=== PATIENT | female | born 1995 | race Caucasian/White ===

== ENCOUNTER 2017-04-02 07:40 | Emergency (ER) | payer BC ==
[~2017-04-02 07:40] MED LIST: BCPILLS PO; CEPH500C PO
[2017-04-02 07:43] VITALS: TEMP 36.8; Ht 157.5 cm
[2017-04-02] MEDS ORDERED: IBUPROFEN 600 MG TAB PO STA (08:01)
--- NOTE | 2017-04-02 08:37 | DIAGNOSTIC IMAGING REPORT ---
LEFT FOOT 3 VIEWS CLINICAL HISTORY: Fall with left foot pain. FINDINGS: 3 views of left foot are obtained. No prior studies are available for comparison at the time of dictation. The skeletal structures are well mineralized. No fracture is seen. The joint spaces of the foot are well-maintained. The overlying soft tissues are within normal limits. IMPRESSION: No acute bony abnormality is seen in the left foot. Electronically signed by: Stone Bishop M.D. 04/02/2017 8:35 AM Dictated Date/Time: 04/02/2017 8:33 AM
[2017-04-02] MEDS ORDERED: [UNRECOGNIZED DRUG - CODE] PO (08:57)
--- NOTE | 2017-04-02 09:01 | EMERGENCY ROOM VISIT NOTE ---
ED Visit Note First contact with patient: 07:48 CHIEF COMPLAINT: Left Foot pain HISTORY OF PRESENT ILLNESS: This 21-year-old female patient presents to the emergency department, ambulatory, [facility], complaining of swelling and pain in the left foot at rest and worse with weight bearing. The patient sates she was walking down the stairs this morning, and stumbled. The patient states this caused her ankle to roll underneath her. The patient attempted to use ice and elevation for the discomfort but nothing for pain. The patient states the pain is primarily localized on the dorsal aspect of the foot just proximal to the first 2 digits. She reports some mild redness and swelling in the painful areas. The patient denies any limitations in her range of motion, however states strength is slightly weakened due to pain. The patient rates the pain as throbbing and 6/10. The patient has had no relief of the pain. The patient is able to walk, however this significantly worsens her pain. No numbness or weakness. No ankle pain. There are no lacerations of the foot, but there are several very superficial abrasions. The patient is able to move all of their toes and their ankle without pain. No previous fracture to this foot. The patient's tetanus vaccination is up-to-date. REVIEW OF SYSTEMS: GENERAL: A 6 system review of systems was completed with positives and pertinent negatives in the HPI. ALLERGIES: None MEDICATIONS: Celexa PMH: None SOCIAL HISTORY: Patient lives locally with family. She denies drug, alcohol, tobacco use. PHYSICAL EXAM: Vital Signs: Reviewed Nurse's notes, vital signs stable. GENERAL : This is a 21-year-old female, in no acute distress, but appears in pain, well- developed, well-nourished. MUSCULOSKELATAL: There is no visual deformity of the left foot. There is mild erythema without ecchymosis. There is no warmth. There is tenderness and swelling over the dorsal, medial aspect of the left foot. There is no tenderness over the lateral or medial malleolus. No tenderness of the tib/fib. The range of motion of the foot, ankle, toes is not limited. There is no tenderness over the plantar fascia. The skin is intact and there are no lacerations or puncture wounds. Dorsalis pedis pulse 2+. Capillary refill less than 2 seconds. RADIOLOGY: X-Ray Left Foot: FINDINGS: 3 views of left foot are obtained. No prior studies are available for comparison at the time of dictation. The skeletal structures are well mineralized. No fracture is seen. The joint spaces of the foot are well-maintained. The overlying soft tissues are within normal limits. IMPRESSION: No acute bony abnormality is seen in the left foot. EMERGENCY DEPARTMENT COURSE: I examined the patient. The patient was given a dose of 600 mg ibuprofen. The patient advised x-ray technicians that there is a possibility she may be . A urine test was ordered and was positive. An X-ray of the left foot was reviewed by myself and the radiologist and reveals no acute fracture or abnormality. I offered the patient a postop shoe, but she declines. Discussed with the patient the positive test , and did prescribe her vitamins. I encouraged the patient to follow up with obstetrics outpatient. The patient was instructed on the use of crutches. The patient was discharged home in good condition. DIAGNOSIS: Left foot pain, TREATMENT: ORTHOPEDIC INSTRUCTIONS: Acetaminophen(Tylenol) may be used for fever or pain. Use 1000mg every six hours as needed. Avoid using more than 3000mg in a 24 hour period. *Do not take NSAIDs such as ibuprofen if you can avoid it, as we did perform a test in the ED which was positive. Ice compresses for 20 minutes at a time four times daily for 2-3 days. Use the crutches as instructed. Avoid weight-bearing as much as possible until it becomes tolerable. Then be sure to wear good, supportive footwear. Rest and elevate your injury. Return to the ER immediately for any numbness, tingling, severe pain, extreme swelling in the extremity or as needed. Call [facility], [phone], if no improvement in 1-2 days to arrange follow up for your injury. Follow-up with your primary care physician in 2 to 3 days for a recheck of your current condition. Follow-up with SHIFT SUPERVISOR regarding your for pre-jeremy care. Current/Historical Medications Scheduled Vit W/ Ferrous Fumara ( One Daily), 1 TAB PO DAILY Allergies Coded Allergies: No Known Allergies (Unverified , 04/02/17) Vital Signs Date Time Temp Pulse Resp B/P (MAP) Pulse Ox O2 Delivery O2 Flow Rate FiO2 04/02/17 09:03 78 20 113/63 97 Room Air 04/02/17 07:43 36.8 91 16 123/78 99 Room Air Medications Administered Medications (Trade) Dose Ordered Sig/Michelle Route Start Time Stop Time Status Last Admin Dose Admin Ibuprofen (Motrin Tab) 600 mg NOW STAT PO 04/02/17 08:01 04/02/17 08:02 DC 04/02/17 08:06 600 MG Departure Information Impression Primary Impression: Foot pain Additional Impression: Dispostion Home / Self-Care Condition GOOD Prescriptions Vit W/ Ferrous Fumara ( ONE DAILY) 1 Tab Tab 1 TAB PO DAILY for 30 Days, #30 TAB 1 Refill Prov: Briana Giang, LUIS 04/02/17 Referrals Rafael Lopez M.D. (MEDICAL) (PCP) Rylan Man D.O. [facility]PER[facility] Patient Instructions ED Contusion Foot, ED Preg Established Normal Sxs, My [facility] Additional Instructions ORTHOPEDIC INSTRUCTIONS: Acetaminophen(Tylenol) may be used for fever or pain. Use 1000mg every six hours as needed. Avoid using more than 3000mg in a 24 hour period. *Do not take NSAIDs such as ibuprofen if you can avoid it, as we did perform a test in the ED which was positive. Ice compresses for 20 minutes at a time four times daily for 2-3 days. Use the crutches as instructed. Avoid weight-bearing as much as possible until it becomes tolerable. Then be sure to wear good, supportive footwear. Rest and elevate your injury. Return to the ER immediately for any numbness, tingling, severe pain, extreme swelling in the extremity or as needed. Call [facility], [phone], if no improvement in 1-2 days to arrange follow up for your injury. Follow-up with your primary care physician in 2 to 3 days for a recheck of your current condition. Follow-up with SHIFT SUPERVISOR regarding your for pre- care. Problem Qualifiers Primary Impression: Foot pain Laterality: left Qualified Codes: M79.672 - Pain in left foot Additional Impression: Weeks of gestation: unspecified Qualified Codes: Z34.90 - Encounter for supervision of normal , unspecified, unspecified trimester
[2017-04-02 09:03] VITALS: BP 113/63; PULSE 78; O2SAT 97
== END 2017-04-02 09:15 | disposition home or self-care (01) ==
LOC: C.EDB 07:43
DX: O99.89 Other specified diseases and conditions complicating pregnancy, childbirth and the puerperium (principal); Z3A.01 Less than 8 weeks gestation of pregnancy; S90.812A Abrasion, left foot, initial encounter; X50.0XXA Overexertion from strenuous movement or load, initial encounter; Z79.899 Other long term (current) drug therapy

== ENCOUNTER → 2017-05-05 | Outpatient (CLI) | payer BC ==
[~2017-05-05] MED LIST changes: -BCPILLS PO; -CEPH500C PO; +[UNRECOGNIZED DRUG - CODE] PO
[2017-05-05 17:17] LABS: BASO % 0.2 %; BASO ABS # 0.02 K/uL (0-0.2); COMPLETE YES; EOS % 0.9 %; HEMATOCRIT 36.8 % (37-47); IG% 0.5 %; LYMPH % 29.6 %; LYMPH ABS # 3.47 K/uL (1.2-3.4); MEAN CELL VOLUME 86.4 fL (80-100); MEAN CORPUSCULAR HEMOGLOBIN 29.3 pg (25-34); MEAN PLATELET VOLUME 8.9 fL (7.4-10.4); MONO % 7.3 %; NEUT % 61.5 %; PLATELET COUNT 243 K/uL (130-400); RED BLOOD COUNT 4.26 M/uL (4.2-5.4); WHITE BLOOD COUNT 11.71 K/uL (4.8-10.8)
[2017-05-05 18:47] LABS: URINE APPEARANCE CLOUDY (CLEAR); URINE BILIRUBIN NEG (NEG); URINE COLOR YELLOW; URINE EPITHELIAL CELL AUTO >30 /lpf (0-5); URINE NITRITE NEG (NEG); URINE SPECIFIC GRAVITY 1.029 (1.000-1.030); UROBILINOGEN NEG (NEG)
[2017-05-05 18:50] LABS: MANUAL MICROSCOPIC REQUIRED? NO; REVIEW REQ? NO
[2017-05-08 00:32] LABS: CHLAMYDIA TRACH RNA*** NOT DETECTED (NOT DETECTED); GC (NEIS GONORRHOEAE)RNA** NOT DETECTED (NOT DETECTED)
== END | disposition home or self-care (01) ==
LOC: C.LAB1850 16:49
PROVIDERS: ATTEND Obstetrics & Gynecology
DX: Z34.01 Encounter for supervision of normal first pregnancy, first trimester (principal); Z3A.00 Weeks of gestation of pregnancy not specified

== ENCOUNTER → 2017-05-05 | Outpatient (CLI) | payer BC | END | disposition home or self-care (01) | LOC: C.PAPS 09:00 | PROVIDERS: ATTEND Obstetrics & Gynecology | DX: Z34.01 Encounter for supervision of normal first pregnancy, first trimester (principal) ==

== ENCOUNTER → 2017-06-09 | Outpatient (CLI) | payer BC ==
[2017-06-09 17:39] LABS: GTGD 50 Grams
== END | disposition home or self-care (01) ==
LOC: C.LAB1850 13:56
PROVIDERS: ATTEND Obstetrics & Gynecology
DX: Z34.02 Encounter for supervision of normal first pregnancy, second trimester (principal)

== ENCOUNTER → 2017-06-25 | Outpatient (CLI) | payer BC | END | disposition home or self-care (01) | LOC: C.LAB1850 08:24 | PROVIDERS: ATTEND Obstetrics & Gynecology | DX: O28.1 Abnormal biochemical finding on antenatal screening of mother (principal) ==

== ENCOUNTER → 2017-08-25 | Outpatient (CLI) | payer BC ==
[2017-08-25 10:11] LABS: HEMATOCRIT 32.2 % (37-47); HEMOGLOBIN 10.9 g/dL (12.0-16.0)
== END | disposition home or self-care (01) ==
LOC: C.LAB1850 08:57
PROVIDERS: ATTEND Obstetrics & Gynecology
DX: Z34.03 Encounter for supervision of normal first pregnancy, third trimester (principal)

== ENCOUNTER → 2017-10-20 | Outpatient (CLI) | payer BC | END | disposition home or self-care (01) | LOC: C.LABSPEC 15:33 | PROVIDERS: ATTEND Obstetrics & Gynecology | DX: Z34.03 Encounter for supervision of normal first pregnancy, third trimester (principal) ==

== ENCOUNTER 2017-11-15 18:49 | Outpatient (CLI) | payer BC ==
[~2017-11-15] VITALS: Ht 157.5 cm; Wt 92.7 kg
[2017-11-15 19:32] VITALS: Ht 157.5 cm; Wt 92.7 kg
--- NOTE | 2017-11-26 07:18 | EDITING REQUIRED CODING QUERY ---
HUBBARD BULB INSERTION A hubbard bulb insertion was noted on the nurse's notes for the 11/15/17. Please indicate below if this was performed: ( ) Hubbard bulb was not inserted during this admission. ( X ) Hubbard bulb was inserted: BRIEF DESCRIPTION: It was inserted ( ) Other, please clarify: Thank you for your assistance, Alexandra Lopez - Blending Line Attendant
== END 2017-11-15 20:25 | disposition home or self-care (01) ==
LOC: C.OPB 18:49 → C.LD 18:49 → C.OPB 20:25
PROVIDERS: ATTEND Obstetrics & Gynecology
DX: O34.43 Maternal care for other abnormalities of cervix, third trimester (principal); Z3A.00 Weeks of gestation of pregnancy not specified

== ENCOUNTER 2017-11-16 07:27 | Inpatient (IN) | payer BC ==
[~2017-11-16] VITALS: Ht 157.5 cm; Wt 91.0 kg
[2017-11-16] MEDS ORDERED: LACTATED RINGER'S 1000ML 1,000 ML IV PRN (08:23)
[2017-11-16] MEDS ORDERED: LACTATED RINGER'S 1000ML 1,000 ML IV SCH (08:23)
[2017-11-16] MEDS ORDERED: LACTATED RINGER'S 1000ML 500 ML IV PRN ×2 (08:23→13:57)
[2017-11-16] MEDS ORDERED: OXYTOCIN 30 UNITS/500ML NSS IV PRN ×2 (08:30→18:30)
[2017-11-16 08:32] VITALS: Ht 157.5 cm; Wt 91.0 kg
[2017-11-16 08:49] LABS: HEMATOCRIT 36.4 % (37-47); HEMOGLOBIN 12.5 g/dL (12.0-16.0); MEAN CELL VOLUME 87.1 fL (80-100); MEAN CORPUSCULAR HEMOGLOBIN 29.9 pg (25-34); MEAN CORPUSCULAR HGB CONC 34.3 g/dl (32-36); MEAN PLATELET VOLUME 10.2 fL (7.4-10.4); PLATELET COUNT 201 K/uL (130-400); RED CELL DISTRIBUTION WIDTH CV 15.1 % (11.5-14.5); RED CELL DISTRIBUTION WIDTH SD 48.1 fL (36.4-46.3); WHITE BLOOD COUNT 11.89 K/uL (4.8-10.8)
[2017-11-16] MEDS ORDERED: FENTANYL CITRATE INJ 50 MCG/1 ML 2 ML VIAL ONE (13:15)
[2017-11-16] MEDS ORDERED: EpHEDrine SULFATE INJ 50 MG/ML AMP ONE (13:15)
[2017-11-16] MEDS ORDERED: BUPIVACAINE 0.25% 30 ML VIAL ONE (13:15)
[2017-11-16] MEDS ORDERED: FENTANYL 2MCG/ML ROPIV 1.25MG/ML 100ML BAG EPI ONE (13:16)
[2017-11-16] MEDS ORDERED: NALOXONE HCL INJ 1 MG in SODIUM CHLORIDE 0.9% 1000ML 1,000 ML IV PRN (13:57)
[2017-11-16] MEDS ORDERED: EpHEDrine SULFATE INJ 50 MG/ML AMP IV PRN (14:00)
[2017-11-16] MEDS ORDERED: NALOXONE HCL INJ 0.4 MG/1 ML VIAL/CARP IV PRN (14:00)
[2017-11-16] MEDS ORDERED: NALBUPHINE HCL INJ 10 MG/ML AMP IV PRN (14:00)
[2017-11-16] MEDS ORDERED: ONDANSETRON INJ 2 MG/ML 2 ML VIAL IV PRN (14:00)
[2017-11-16] MEDS ORDERED: DiphenhydrAMINE HCL 50 MG/ML VIAL IV PRN (14:00)
[2017-11-16] MEDS ORDERED: FENTANYL 2MCG/ML ROPIV 1.25MG/ML 100ML BAG EPI PRN (14:00)
[2017-11-16] MEDS ORDERED: ACETAMINOPHEN 325 MG TAB PO PRN (18:30)
[2017-11-16] MEDS ORDERED: LANOLIN OINT EXT PRN (18:30)
[2017-11-16] MEDS ORDERED: BENZOCAINE 20% AER SPR 82.5 GM CAN EXT PRN (18:30)
[2017-11-16] MEDS ORDERED: OXYCODONE/ACETAMINOPHEN 5-325 TAB PO PRN (18:30)
[2017-11-16] MEDS ORDERED: SUPERCREAM 0.870 % 15GM JAR EXT PRN (18:30)
--- NOTE | 2017-11-16 19:03 | DELIVERY SUMMARY ---
DATE OF OPERATION: 11/16/2017 Patient is a 22-year-old G1, P0 white female, EDC of 11/16/2017, who presented for induction. She is a diet-controlled gestational diabetic; however, her last abdominal circumference at 36 weeks was 96 percentile. She received a cervical balloon for ripening on the night of 11/15/2017. She presented to labor and delivery in the morning with the balloon in the vagina and cervix 3-4 cm, 70% and -1 station. Pitocin was begun. She requested epidural analgesia. She then progressed to full dilation and membranes were ruptured upon exam for clear fluid. She pushed effectively over median episiotomy for delivery of a viable female . There was a loose body cord. The median episiotomy was done because of repeated deep heart rate decelerations following the pushing episodes. The rest of the delivered easily and was placed on the mother's abdomen for further stimulation and warming. The cord was clamped and cut as it was a fairly short cord to allow for better placement of the baby on the mother's abdomen. There was spontaneous crying and the infant was moving all 4 limbs. After cord blood was obtained, the placenta was expressed intact with a 3-vessel cord. A second-degree perineal laceration was repaired with 3-0 chromic in the usual fashion. Estimated blood loss was 200 mL. Mother and are doing well after delivery. I attest to the content of the Intraoperative Record and any orders documented therein. Any exceptions are noted below. MTDD
--- NOTE | 2017-11-16 19:48 | Anesthesia Procedure Note ---
Anesthesia Epidural Removal Nt Date & Time Nov 16, 2017 at 19:47 Vital Signs Pain Intensity: 0.0 Notes Mental Status: alert / awake / arousable, participated in evaluation Nausea / Vomiting: adequately controlled Pain: adequately controlled Airway Patency, RR, SpO2: stable & adequate BP & HR: stable & adequate Hydration State: stable & adequate Neuraxial Anesthesia: was administered, sensory block is resolving Anesthetic Complications: no major complications apparent, pt satisfied with anesthetic care Epidural: removed without complications, with tip intact
[2017-11-16] MEDS: DOCUSATE SODIUM 100 MG CAP PO SCH (20:00)
[2017-11-16 21:30] VITALS: BP 112/74; PULSE 73; TEMP 36.9
[2017-11-16 23:00] VITALS: BP 127/79; PULSE 71; TEMP 37.1
[2017-11-16] MEDS: IBUPROFEN 600 MG TAB PO PRN (23:03)
[2017-11-17] MEDS: IBUPROFEN 600 MG TAB PO PRN ×3 (02:40→17:30)
[2017-11-17 04:45] VITALS: BP 120/71; PULSE 74; TEMP 36.6
--- NOTE | 2017-11-17 06:44 | Progress Note ---
Subjective Nov 17, 2017. Subjective conversation w/ patient, physical exam, chart review, lab review Ambulation: ambulating normally Voiding: no voiding problems Passing Gas: Yes Diet Tolerance: Regular Diet Lochia: Small Feeding Type: Breast Feeding Review of Systems Constitutional: No fever, No chills Respiratory: No cough, No shortness of breath Cardiac: No chest pain, No palpitations Abdomen: No pain, No nausea, No vomiting Female : No dysuria Objective Vital Signs Date Time Temp Pulse Resp B/P (MAP) Pulse Ox O2 Delivery O2 Flow Rate FiO2 11/17/17 04:45 36.6 74 18 120/71 (87) Room Air 11/16/17 23:00 37.1 71 18 127/79 (95) Room Air 11/16/17 23:00 Room Air 11/16/17 21:30 Room Air 11/16/17 21:30 36.9 73 18 112/74 (87) Room Air Physical Exam General Appearance: WELL-APPEARING, WD/WN, NO APPARENT DISTRESS Respiratory/Chest: lungs clear, no respiratory distress Cardiovascular: regular rate, rhythm, no murmur Abdomen: non tender, soft Fundus: Firm, Relation to Umbilicus (at the level of the u) Extremities: non-tender, normal inspection Laboratory Results Last 24 Hours Test 11/16/17 08:38 11/16/17 09:05 11/16/17 12:59 11/17/17 04:44 White Blood Count 11.89 K/uL Red Blood Count 4.18 M/uL Hemoglobin 12.5 g/dL Hematocrit 36.4 % Mean Corpuscular Volume 87.1 fL Mean Corpuscular Hemoglobin 29.9 pg Mean Corpuscular Hemoglobin Concent 34.3 g/dl RDW Standard Deviation 48.1 fL RDW Coefficient of Variation 15.1 % Platelet Count 201 K/uL Mean Platelet Volume 10.2 fL Bedside Glucose 74 mg/dl 81 mg/dl Assessment and Plan Problem List Medical Problems: (1) Foot pain Status: Acute (2) Status: Acute Post- Day#: 1 Continue Routine Care: Resident Physician Supervision Note: I interviewed and examined the patient. Discussed with Dr. Kristofer Velarde and agree with findings and plan as documented in the note. Any exceptions or clarifications are listed here: [None] Documented By: Cori Liz 22 yo female, , O+/RI/GBS-, PPD1. Vital reviewed, WNL. Hgb 12.5 on admission, pending this am. No signs or sx of anemia. Doing well clinically. Plan; 1. Recovery from vaginal delivery; ambulate, support BF, monitor lochia, control pain
--- NOTE | 2017-11-17 07:00 | Discharge Instructions ---
Discharge Instructions Date of Service Nov 17, 2017. Admission Reason for Admission: Induction Discharge Discharge Diagnosis / Problem: vaginal delivery Discharge Goals Goal(s): Routine recovery after delivery Medications Continue Dispensed Medications: supercream, dermaplast, tucks, lansinoh Activity Recommendations Activity Limitations: per Instructions/Follow-up section . Instructions / Follow-Up Instructions / Follow-Up ACTIVITY RECOMMENDATIONS: * Gradual return to full activity over the next 2-3 weeks. * No lifting - nothing heavier than baby over the next 2-3 weeks. * Do not engage in vigorous exercise, sexual activity or sports until cleared by your physician. * Do not drive or operate any motorized equipment until cleared by your physician. * You may shower/bathe daily. MEDICATIONS: For discomfort or pain, you may use Acetaminophen (Tylenol), Ibuprofen (Advil), or Naproxen (Aleve) following the package directions. For constipation you may use Colace following the package directions. BREAST CARE: If you are not breast feeding: * Wear a supportive bra 24 hours a day for one to two weeks. * Avoid stimulating your breasts and nipples as much as possible during the first few weeks after delivery. * When taking a shower, have the warm water hit your back, not breasts. * When your breasts feel full, apply ice packs. Usually three to four times a day helps ease the discomfort. * Take a mild pain medication (Tylenol / Motrin) when you are uncomfortable. If breast feeding: * Use breast milk to lubricate nipples. Lansinoh cream may be used for sore nipples. You do not need to remove cream prior to breast feeding. If using a different brand of cream, check the label for directions regarding removal of cream prior to nursing. * Wear a supportive bra. * If having problems with breasts or breast feeding, call a crop consultant or your health care provider. EPISIOTOMY CARE: After delivery, if you have an episiotomy (stitches), the following steps will ease discomfort and aid healing. * For the first 24 hours after delivery, place ice packs next to your episiotomy to help reduce swelling. * After the first 24 hour-period, sitz baths, either portable or in the tub, are suggested. A shower with a shower arm sprayed over the episiotomy may be comforting. * Sneha care should be done after each voiding and bowel movement. Squirt warm water from a plastic bottle over the perineum (region of the body between the anus and urinary opening) and pat dry. * Use Dermoplast to ease discomfort. Shake container. [place] directly over the episiotomy. Place a Tucks on a clean sanitary pad next to your episiotomy. SPECIAL CARE INSTRUCTIONS: When you are discharged from the hospital, it is important for you to follow the instructions listed below: * During the first week at home, you should be able to care for yourself and your baby. In addition, the usual light household activities are encouraged. * Limit your activities to the way you feel. Do not try to clean the house or move furniture. Be sensible. * If you actively engage in sports and have done so up until the time of your delivery, you may resume these activities as soon as you feel able. This may take up to one month or even longer. Use good judgment. * Continue to take your vitamins for at least six weeks after the of your baby. * Your diet need not be limited unless you were on a special diet before your delivery. Breast-feeding mothers need around 2500 calories per day and at least 64-80 ounces of fluid per day (8 to 10 glasses). * You should eat foods from the four major food groups. Crash diets or fad diets are to be avoided. Eating lean meats, fresh fruits and vegetables, low-fat dairy products, high fiber foods and a regular exercise program, will help you get back to your pre- weight without putting your health at risk. * Constipation is sometimes a problem after delivery. Take a mild laxative as needed. If breast feeding, Milk of Magnesia is acceptable to use. You may use a suppository or Fleets enema if no episiotomy. * A daily shower or tub bath is suggested. Be sure to thoroughly and gently dry the perineum. * A bloody vaginal discharge will usually continue until around four weeks post . A small amount of bleeding may continue for as long as six weeks. Vaginal discharge changes from the bright red bleeding after delivery to pink then brownish and finally yellowish-pink before becoming white and disappearing. * Bleeding may increase with activity. Your first period may come in 4-8 weeks. If you are breast feeding, your period may be delayed even longer. * [place] (sex) can begin whenever both you and your partner feel comfortable and do not have any form of genital infection. It is recommended that you wait at least six weeks for internal and external healing to occur. If you have questions, please talk to your health care practitioner. A condom should be used to prevent infection and . * Foreplay, gentle intercourse and lubrication is very important the first several times to prevent pain. A water-based lubricant such as K-Y jelly or Astroglide may be used. * If you have RH negative blood and your baby is RH positive, you will receive RHOGAM by injection prior to discharge. The nurse will give you a card to keep with you that has the date and place that you received RHOGAM after delivery. * During your care, you had a Rubella screen done to check for the presence of rubella antibodies in your blood. If your test was negative, you will receive a Rubella vaccine prior to discharge. This vaccine may cause a fever, soreness at the injection site and flu-like symptoms. If these symptoms persist, notify your health care practitioner. is not advised for one month after a Rubella vaccine. * Verbalizes understanding of car seat law as reviewed with patient nursing. * Car Seat hand-out given and reviewed with patient by nursing. * Shaken baby information reviewed with patient by nursing. Call you doctor if: * Heavy bleeding (saturating several pads an hour) or passing clots the size of your fist. * A fever >101 degrees F (38.3 degrees C) on two occasions four hours apart and /or chills. * Unusual pain in the pelvic or vaginal areas. * "Baby Blues" lasting longer than two weeks. If you have any questions or concerns, call your health care practitioner at . FOLLOW UP VISIT: * Please call the office at to schedule a 6 week examination. It is important you keep this appointment. It is important for you to make arrangements for either yearly or twice yearly check-ups thereafter. Current Hospital Diet Patient's current hospital diet: Regular OB Diet Discharge Diet Recommended Diet: Regular Diet, Regular OB Diet Pending Studies Studies pending at discharge: no Medical Emergencies . Who to Call and When: Medical Emergencies: If at any time you feel your situation is an emergency, please call [phone] immediately. . Non-Emergent Contact Non-Emergency issues call your: Primary Care Provider, Campus Interviews Intern . . "Provider Documentation" section prepared by Isaac Velarde. .
[2017-11-17 07:41] LABS: HEMOGLOBIN 12.4 g/dL (12.0-16.0)
[2017-11-17 08:00] VITALS: BP 118/68; PULSE 63; TEMP 36.6
[2017-11-17] MEDS: DOCUSATE SODIUM 100 MG CAP PO SCH ×2 (08:04→19:43)
[2017-11-17] MEDS: PRENATAL VITAMIN TAB PO SCH (08:04)
[2017-11-17 11:45] VITALS: BP 114/77; PULSE 66; TEMP 36.9
[2017-11-17 12:00] VITALS: BP 137/88; PULSE 73; TEMP 37
[2017-11-17 15:30] VITALS: BP 107/68; PULSE 66; TEMP 36.9
[2017-11-17] MEDS ORDERED: BISACODYL 5 MG TABEC PO SCH (20:00)
[2017-11-17 23:50] VITALS: BP 111/67; PULSE 67; TEMP 36.9
--- NOTE | 2017-11-18 06:55 | Progress Note ---
Subjective Nov 18, 2017. Subjective conversation w/ patient, conversation w/ family, physical exam, chart review, lab review Ambulation: ambulating normally Voiding: no voiding problems Passing Gas: Yes Diet Tolerance: Regular Diet Lochia: Small Feeding Type: Breast Feeding Review of Systems Constitutional: No fever, No chills Respiratory: No cough, No shortness of breath Cardiac: No chest pain, No palpitations Abdomen: No pain, No nausea, No vomiting Female : No dysuria Objective Vital Signs Date Time Temp Pulse Resp B/P (MAP) Pulse Ox O2 Delivery O2 Flow Rate FiO2 11/17/17 23:50 Room Air 11/17/17 23:50 36.9 67 18 111/67 (82) Room Air 11/17/17 15:30 Room Air 11/17/17 15:30 36.9 66 18 107/68 (81) Room Air 11/17/17 12:00 37.0 73 18 137/88 (104) Room Air 11/17/17 11:45 36.9 66 18 114/77 (89) Room Air 11/17/17 08:00 36.6 63 18 118/68 (85) Room Air 11/17/17 07:50 Room Air Physical Exam General Appearance: WELL-APPEARING, WD/WN, NO APPARENT DISTRESS Respiratory/Chest: lungs clear, no respiratory distress Cardiovascular: regular rate, rhythm, no murmur Abdomen: non tender, soft Fundus: Firm Extremities: non-tender, normal inspection Laboratory Results Last 24 Hours Test 11/17/17 07:28 Hemoglobin 12.4 g/dL Hematocrit 37.0 % Assessment and Plan Problem List Medical Problems: (1) Foot pain Status: Acute (2) Status: Acute Post- Day#: 2 Continue Routine Care: 22 yo female, , O+/RI/GBS-, PPD2. Vital reviewed, WNL. Hgb 12.5 on admission, 12.4 on 11/17. No signs or sx of anemia. Doing well clinically. Plan; 1. Recovery from vaginal delivery; ambulate, support BF, monitor lochia, control pain 2. Discussed dc planning Resident Physician Supervision Note: I was present with Dr. Velarde during the history and exam. I discussed the case with the resident and agree with the findings and plan as documented in the note. Any exceptions or clarifications are listed here: PPD#2 doing well. Discharge to home. Documented By: Raquel Hall
[2017-11-18] MEDS: IBUPROFEN 600 MG TAB PO PRN (07:32)
[2017-11-18] MEDS: PRENATAL VITAMIN TAB PO SCH (07:41)
[2017-11-18] MEDS: DOCUSATE SODIUM 100 MG CAP PO SCH (07:41)
[2017-11-18 07:45] VITALS: BP 130/90; PULSE 83; TEMP 36.5
[2017-11-18] MEDS ORDERED: DIPHTHERIA/TETANUS/PERTUSSIS 0.5 ML SYR/VIAL IM. ONE (10:00)
[2017-11-18 12:00] VITALS: BP_DIAS 90; PULSE 83; TEMP 36.5
== END 2017-11-18 12:30 | disposition home or self-care (01) | DRG 775 ==
LOC: C.LD 07:27 → C.OBG 21:16
PROVIDERS: ADMIT Obstetrics & Gynecology; ATTEND Obstetrics & Gynecology
PROC: 10E0XZZ Delivery of Products of Conception, External Approach (ICD-10-PCS; principal; 2017-11-16)
PROC: 0KQM0ZZ Repair Perineum Muscle, Open Approach (ICD-10-PCS; principal; 2017-11-16)
PROC: 0W8NXZZ Division of Female Perineum, External Approach (ICD-10-PCS; principal; 2017-11-16)
PROC: 3E033VJ Introduction of Other Hormone into Peripheral Vein, Percutaneous Approach (ICD-10-PCS; 2017-11-16)
DX: O24.410 Gestational diabetes mellitus in pregnancy, diet controlled (principal); O36.63X0 Maternal care for excessive fetal growth, third trimester, not applicable or unspecified; O76 Abnormality in fetal heart rate and rhythm complicating labor and delivery; O70.1 Second degree perineal laceration during delivery; Z3A.40 40 weeks gestation of pregnancy; Z23 Encounter for immunization

== ENCOUNTER 2019-09-23 11:07 | Inpatient (IN) ==
[2019-09-23 12:39] LABS: Basophils # (auto) 0.03 K/uL (0-0.2); Basophils % (auto) 0.3 %; Eosinophils # (auto) 0.05 K/uL (0-0.5); Eosinophils % (auto) 0.5 %; Hemoglobin 15.1 g/dL (12.0-16.0); Immature Granulocytes # (auto) 0.02 K/uL (0.00-0.02); Immature Granulocytes % (auto) 0.2 %; Lymphocytes # (auto) 3.05 K/uL (1.2-3.4); Lymphocytes % (auto) 30.4 %; Mean Corpuscular Hgb Conc 34.3 g/dL (32-36); Mean Corpuscular Volume 90.3 fL (80-100); Mean Platelet Volume 9.4 fL (7.4-10.4); Neutrophils # (auto) 6.29 K/uL (1.4-6.5); Neutrophils % (auto) 62.6 %; Platelet Count 282 K/uL (130-400); RDW Coefficient of Variation 12.6 % (11.5-14.5); RDW Standard Deviation 41.9 fL (36.4-46.3); Red Blood Count 4.87 M/uL (4.2-5.4); White Blood Count 10.04 K/uL (4.8-10.8)
[2019-09-23 12:56] LABS: Alanine Aminotransferase 24 U/L (12-78); Albumin Level 3.9 gm/dl (3.4-5.0); Aspartate Aminotransferase 16 U/L (15-37); BUN Creatinine Ratio 8.8 (10-20); Blood Urea Nitrogen 10 mg/dl (7-18); Calcium 9.2 mg/dl (8.5-10.1); Carbon Dioxide 26 mmol/L (21-32); Chloride 107 mmol/L (98-107); Creatinine Clr Calc Pharmacy 72.9 ml/min; Est GFR (African American) 79.6; Est GFR (Non-African American) 68.7; Glucose 101 mg/dl (70-99); Magnesium 2.3 mg/dl (1.8-2.4); Potassium 3.9 mmol/L (3.5-5.1); Sodium 138 mmol/L (136-145)
[2019-09-23 12:59] LABS: Partial Thromboplastin Time 26.5 Seconds (21.0-31.0); Prothrombin Time 10.1 Seconds (9.0-12.0)
[2019-09-23 13:02] LABS: Albumin Globulin Ratio 0.8 (0.9-2); Alkaline Phosphatase 75 U/L (45-117); Bilirubin,Total 0.2 mg/dl (0.2-1); Globulin 4.7 gm/dl (2.5-4.0); Total Protein 8.6 gm/dl (6.4-8.2); Troponin I < 0.015 ng/ml (0-0.045)
[2019-09-23] MEDS ORDERED: GADOBUTROL 65ML VIAL IV PRN (13:11)
[2019-09-23 13:21] LABS: Lyme Ab IgG w/WB Rflx Negative (Negative)
[2019-09-23 13:22] LABS: Lyme Ab IgM w/WB Rflx Equivocal (Negative)
--- NOTE | 2019-09-23 13:35 | Magnetic Resonance Report ---
MR brain MS wo/w con HISTORY: 23 years-old Female L weakness, neg head CT yest, ataxia acute left arm numbness COMPARISON: None TECHNIQUE: Multiplanar multisequence MRI of the brain was obtained both with and without the use of 7 .5 mL Gadavist FINDINGS: Fishing Tool Supervisor localizer images demonstrate no gross abnormality. There is a focus of restricted diffusion inv olving the right frontal parietal lobe periventricular white matter measuring 3.8 x 2.1 cm in AP and transverse dimension with decreased signal on ADC map and increased T2/FLAIR signal which measures up to at least 2.4 cm in craniocaudal dimension. Minimal ill-defined enhancement within this distributi on suggests subacute etiology. No additional restricted diffusion identified. The midline structures including the corpus callosum, brainstem, optic chiasm, and pituitary gland appear unremarkable. 3 mm pineal gland cyst incidentally noted. No cerebellar tonsillar herniation. The imaged cervical spine is unremarkable. No acute intracranial hemorrhage, midline shift, abnormal extra axial collection, hydrocephalus or in tracranial mass. No additional abnormal enhancement. Moderate patchy T2/FLAIR hyperintensities in the subcortical and periventricular white matter of the bilateral cerebral hemispheres with small foci n oted within the bilateral dentate nuclei of the middle cerebellar peduncles, image 119 of series 800 and image 126 of series 800. Foci are also noted within the bilateral thalami. The imaged cervical sp inal cord is unremarkable. The major vascular flow voids are unremarkable. Trace right mastoid effusi on. Mild polypoid mucosal thickening with small air-fluid level of the left maxillary sinus. The skul l, orbits and soft tissues are unremarkable. IMPRESSION: 1. 3.8 x 2.1 cm focus of restricted diffusion within the periventricular right frontal and parietal l obes is suggestive of an subacute infarct with mild associated enhancement and moderate cytotoxic immanuel ma. 2. No acute intracranial hemorrhage, midline shift or hydrocephalus. 3. Moderate patchy T2/FLAIR hyperintensities throughout the white matter of the bilateral cerebral he mispheres and also within the dentate nuclei of the bilateral middle cerebellar peduncles are nonspec ific findings. Primary differential considerations include demyelinating disease versus gliosis from vasculitis with other etiologies not excluded. ACT 112: Negative or not required by law. The above report was generated using voice recognition software. It may contain grammatical, syntax o r spelling errors. Electronically signed by: Haider Christianson M.D. 09/23/2019 1:34 PM
--- NOTE | 2019-09-23 14:32 | Neurology Consultation ---
Date of Consultation September 23, 2019 Assessment & Plan (1) Abnormal MRI of head: 1. MRI - demyelinating disease burden 2. IV methylpredisolone 1 g x 4 days then oral prednisone taper prednisone 80 mg x 2 days, then 60 mg x 2 days, then 40 mg x 2 days, then 30mg x 2 days, 20 mg x 2 days, 10 mg x 2 days then stop 3. LP - CSF studies MS, Lyme, cell count, angio tension ab, glucose, protein, gram stain, cell count with diff, 4. MRI c/t/l spine with and without contrast 5. will arrange for follow up with MS specialist as outpatient to discuss further treatment once definitive diagnosis is made 6. If unable to have LP today ok to wait for radiology to have done over or Thursday (2) Demyelinating changes in brain: Supervising Physician Co-Signing Physician Notes I have seen and discussed above patient with Dr Eric Love, neurology I have seen and interviewed and examined this young woman, reviewed her imaging studies, discussed her case with Flory Teague and agree with the above recommendations and plans for further diagnostic imaging, laboratory studies and therapy for a problem that I believe is multiple sclerosis with relatively acute flareup of symptomatology due to a relatively large right hemispheric lesion in the subcortical white matter producing a left hemisensory deficit with some mild motor weakness and clumsiness. She has had a similar but shorter duration event about 4 years ago but then has had no obvious symptoms yet on imaging studies is clearly accumulated a number of high T2 and density signals which do not enhance and the current problem which is enhancing and likely an active plaque She does have at least a story suggestive of Lhermitte sign in the past and probably does have involvement of the cervical cord and I think we really need to image the entire neuro axis to stage this disorder and if she does have spinal lesions as I suspect she does and we will have to recommend aggressive outpatient therapy likely with B-cell depletion as an initial thrust assuming we can get this approved by her insurance and utilizing the now commercially available Ocrevus Many decisions regarding therapy however live in the future depending on what we determine laboratory delaney but for now I think were totally justified in admitting her to the hospital, obtaining a lumbar puncture under fluoroscopy, and starting treatment with IV Solu-Medrol 1 g daily for 4 days and then oral tapering course with follow-up in our clinic at [facility] and probably have referral to our multiple sclerosis out reach group with Dr. Cayla Christianson I will be in tomorrow to assess her after she has been admitted to the hospital I did spend some time discussing her case with her parents and Flory Teague is already gone over the imaging studies with the patient and her parents I think they fully understand the potential diagnosis and are understandably upset but I think comprehend that we now have to get aggressive in terms of therapy and management Eric Love MD History of Present Illness Reason for Consultation: abnormal MRI Requesting Physician: Michael Botello MD Attending Physician: Michael Botello MD History of Present Illness Noelle is a 23 year old female with a PMH migraines, sclerosis, gestational DM who started having left arm numbness on Thursday. She states the numbness is also on the left side of her face. Her leg has some numbness but is is spotty distribution down to her foot. Her mother is in the room and states this happened to her 4 years ago but only lasted 2 days. She also has a history of a tick bite on her right ear in the past month. Mom states there are no neurologic issues in the family. Her brother had a tethered cord at and scoliosis, mom has DM. She has a 2 year old daughter that is healthy. she is a daily smoker but has chantix trying to quit. The only other medication she is on estrogen based control. denies CP, SOB, abdominal pain, vision changes, bowel or bladder issues, N, V. Allergies Allergy/AdvReac Type Severity Reaction Status Date / Time No Known Allergies Allergy Unverified 09/23/19 13:55 Home Medications Home Medications Medication Instructions Recorded Confirmed Type norethindrone ac-eth estradiol 1 tab PO QAM 09/23/19 09/23/19 History [Microgestin 1.5/30 (21)] varenicline [Chantix Continuing 1 mg PO BID 09/23/19 09/23/19 History Month Box] Patient History Medical History (Updated 09/23/19 @ 15:28 by Miguel Roblero) Scoliosis Surgical History (Updated 09/23/19 @ 12:20 by Miguel Roblero) No pertinent past surgical history Social History Feels Safe at Home: Yes Smoking Status: Current every day smoker Physical Exam Physical Exam: Physical Exam: Constitutional: appearance nourished, healthy and normal Ears, Nose, Mouth and Throat: mucous membranes moist, no injection and skin normal, eyes normal Cardiovascular: normal S-1 and S-2 and regular rate and rhythm Respiratory: clear to auscultation (CTA) and no rales, rhonchi or wheeze Musculoskeletal: no peripheral edema and good distal pulses Skin: no stigmata of neurocutaneous disease noted and normal and intact Eyes: extraocular muscles intact (EOMI) and pupils equal, round and reactive to light (PERRL) NEUROLOGIC EXAMINATION: Mental status: Alert and interactive Oriented to full date and location Oriented to person Speech fluent with no evidence of aphasia Cranial Nerves smile eye brow raise symmetric Reflexes: Deep tendon reflexes were symmetrical and brisk throughout. Sensory: decreased sensation left arm face, cool light touch Coordination: finger to nose on left dysmetric , negative Romberg Gait/Stance: Posture normal. Gait normal: with steady with steps, base, and tandem gait. Motor: Negative for pronator drift of out stretched arms with eyes closed. Strength: right hand printing specialist biceps triceps 5/5, left hand printing specialist biceps triceps 4+/5, hip flex bilaterally 5/5 Results & Data Vital Signs (Past 12 Hours) Vital Signs Temp Pulse Pulse Resp BP BP Pulse Ox 09/23/19 14:10 97 09/23/19 14:08 95 H 12 119/64 97 09/23/19 14:07 99 09/23/19 12:00 121/62 09/23/19 11:51 99 H 16 122/56 L 99 09/23/19 11:15 36.5 C 96 H 19 124/65 98 Laboratory Results Abnormal lab results 09/23/19 09/23/19 09/23/19 Range/Units 12:30 12:30 12:30 [place] # (Auto) 0.60 H (0.11-0.59) K/uL BUN/Creatinine Ratio 8.8 L (10-20) Glucose 101 H (70-99) mg/dl Total Protein 8.6 H (6.4-8.2) gm/dl Globulin 4.7 H (2.5-4.0) gm/dl Albumin/Globulin Ratio 0.8 L (0.9-2) Lyme Disease IgM Ab Equivocal A (Negative) Diagnostic Findings MRI brain with and without- 3.8 x 2.1 cm focus of restricted diffusion within the periventricular right frontal and parietal lobes is suggestive of an subacute infarct with mild associated enhancement and moderate cytotoxic edema. No acute intracranial hemorrhage, midline shift or hydrocephalus. Moderate patchy T2/FLAIR hyperintensities throughout the white matter of the bilateral cerebral hemispheres and also within the dentate nuclei of the bilateral middle cerebellar peduncles are nonspecific findings. Primary differential considerations include demyelinating disease versus gliosis from vasculitis with other etiologies not excluded.
--- NOTE | 2019-09-23 15:35 | Emergency Department Note ---
Entered by Miguel Roblero acting as a scribe for Jessie Amaya MD History of Present Illness General Chief complaint: Neuro Symptoms/Deficit Stated complaint: LEFT SIDE OF BODY NUMBNESS Source: patient Limitations: no limitations History of Present Illness Onset (ago): day(s) 3 Location: upper extremity (left arm) Pain Consistency: + constant Quality: + other (numbness) Associated symptoms: + denies other symptoms (trouble controllign bowels or bladder), + rash (hives), + weakness and + other (left-side face numbness, left leg numbness); no nausea/vomiting (vomiting) The patient is a 23 year old female who presents to the Emergency Room with complaints of constant left arm weakness and numbness starting 3 days ago. The patient states her left leg is numb and she has been having trouble walking. She states her mouth and left side of her face is numb. She states she had a bulls eye rash a month ago. She notes she has been having bad hives intermittently. She states she has been taking Benadryl for her hives. She states she did not get the Lyme disease test. The patient denies vomiting and having trouble controlling her bowels or bladder. She denies being . Home Medications Home Medications Medication Instructions Recorded Confirmed Type norethindrone ac-eth estradiol 1 tab PO QAM 09/23/19 09/23/19 History [Microgestin 1.5/30 (21)] varenicline [Chantix Continuing 1 mg PO BID 09/23/19 09/23/19 History Month Box] Allergies Allergy/AdvReac Type Severity Reaction Status Date / Time No Known Allergies Allergy Unverified 09/23/19 13:55 Past Med/Surg History Medical History Scoliosis Surgical History No pertinent past surgical history Social History Preferred Language: Micronesian Communication Ability: Effective Beliefs That Will Affect Care: None marital status: Single Current Living Situation: Alone Current Living Situation Comment: home alone with a child Feels Safe at Home: Yes Safety Concerns: Feels Safe At This Time Smoking Status: Current every day smoker Tobacco Type: cigarettes ; Hx Alcohol Use: No Hx Substance Use: No Review of Systems See HPI for pertinent positives & negatives. and A total of 10 systems reviewed and were otherwise negative Physical Exam Vital Signs Vital Signs - 24 hr 09/23/19 11:15 09/23/19 11:51 09/23/19 12:00 Temperature 36.5 C Temperature Source Oral Pulse Rate 96 H Pulse Rate [Finger] 99 H Pulse Rate from SpO2 Sensor Respiratory Rate 19 16 Respiratory Effort / Characteristics Non-Labored Spontaneous Respiratory Depth Normal Blood Pressure 124/65 121/62 Blood Pressure [Right Arm] 122/56 L Blood Pressure Mean 84 83 Blood Pressure Mean [Right Arm] 78 Blood Pressure Position Sitting Pulse Oximetry 98 99 Oxygen Delivery Method Room Air Room Air Sepsis Recent Fever Within 48 Hours No Sepsis Action Taken by Nursing No Action Required 09/23/19 14:07 09/23/19 14:08 09/23/19 14:09 Temperature Temperature Source Pulse Rate 95 H 87 Pulse Rate [Finger] Pulse Rate from SpO2 Sensor 75 80 85 Respiratory Rate 12 15 Respiratory Effort / Characteristics Respiratory Depth Blood Pressure 119/64 Blood Pressure [Right Arm] Blood Pressure Mean 71 Blood Pressure Mean [Right Arm] Blood Pressure Position Pulse Oximetry 99 97 97 Oxygen Delivery Method Sepsis Recent Fever Within 48 Hours Sepsis Action Taken by Nursing 09/23/19 14:10 09/23/19 14:30 09/23/19 14:31 Temperature Temperature Source Pulse Rate 73 73 Pulse Rate [Finger] Pulse Rate from SpO2 Sensor 74 72 Respiratory Rate 16 15 Respiratory Effort / Characteristics Respiratory Depth Blood Pressure 123/92 Blood Pressure [Right Arm] Blood Pressure Mean 102 Blood Pressure Mean [Right Arm] Blood Pressure Position Pulse Oximetry 97 98 98 Oxygen Delivery Method Room Air Sepsis Recent Fever Within 48 Hours Sepsis Action Taken by Nursing 09/23/19 15:00 09/23/19 15:01 Temperature Temperature Source Pulse Rate 77 85 Pulse Rate [Finger] Pulse Rate from SpO2 Sensor 81 82 Respiratory Rate 15 24 Respiratory Effort / Characteristics Respiratory Depth Blood Pressure 138/107 H Blood Pressure [Right Arm] Blood Pressure Mean 120 Blood Pressure Mean [Right Arm] Blood Pressure Position Pulse Oximetry 97 98 Oxygen Delivery Method Sepsis Recent Fever Within 48 Hours Sepsis Action Taken by Nursing Vital signs reviewed. General: Well-appearing 23-year-old female, in no significant distress. HEENT: No scleral icterus, PERRLA, neck supple. Atraumatic. Cardiovascular: Regular rate and rhythm, no extra sounds. Pulmonary: Clear to auscultation bilaterally, normal work of breathing. Abdomen: Soft, nontender, nondistended, positive bowel sounds. Musculoskeletal: Atraumatic, no peripheral edema. Neurologic: Patient awake alert and oriented x 3, full strength in all 4 extremities. Cranial nerves 2 through 12 grossly intact. Left nasolabial fold flattening. Positive left pronator drift. 4/5 left upper extremity weakness. Skin: Warm, dry, no rash Course Course 1205: The patient was evaluated in room C2B, and a complete history and physical examination were performed. 1241: I looked at the patient's old records. [facility] wanted a head and neck MRI. 1358: I spoke with Dr. Brad Harris Neurology. He is aware of the patient's condition. 1401: I updated the patient on her labs and imaging results. I recommended admission, and the patient agrees with the plan. 1424: I discussed the patient's case with Dr. Ayan Harris Hospitalist. He will evaluate the patient for further management. Administered Medications Gadobutrol (Gadavist 65ml) 7.5 ml IV ONCE PRN PRN Reason: Interaction Checking Stop: 09/28/19 11:59 Last Admin: 09/24/19 12:01 Dose: 7.5 ml Documented by: [id number] Methylprednisolone 1,000 mg/ (Dextrose) 266 mls @ 266 mls/hr IV DAILY@1600 [facility] Stop: 09/26/19 16:59 Last Infusion: 09/25/19 16:46 Dose: 0 mls/hr Documented by: [id number] Admin: 09/25/19 15:46 Dose: 266 mls/hr Documented by: [id number] Infusion: 09/24/19 18:27 Dose: 0 mls/hr Documented by: [id number] Admin: 09/24/19 17:10 Dose: 266 mls/hr Documented by: [id number] Infusion: 09/23/19 18:01 Dose: 0 mls/hr Documented by: [id number] Admin: 09/23/19 17:01 Dose: 266 mls/hr Documented by: [id number] Sodium Chloride (Nss 1000ml) 1,000 mls @ 80 mls/hr IV .[id number] [facility] Stop: 10/23/19 16:59 Last Admin: 09/26/19 06:36 Dose: 80 mls/hr Documented by: [id number] Infusion: 09/26/19 06:33 Dose: 80 mls/hr Documented by: [id number] Admin: 09/26/19 05:57 Dose: Not Given Documented by: [id number] Admin: 09/25/19 09:56 Dose: 80 mls/hr Documented by: [id number] Infusion: 09/25/19 09:56 Dose: 80 mls/hr Documented by: [id number] Infusion: 09/25/19 09:55 Dose: 80 mls/hr Documented by: [id number] Admin: 09/24/19 21:27 Dose: 80 mls/hr Documented by: [id number] Infusion: 09/24/19 18:47 Dose: 0 mls/hr Documented by: [id number] Admin: 09/24/19 06:13 Dose: 80 mls/hr Documented by: [id number] Infusion: 09/24/19 05:08 Dose: 80 mls/hr Documented by: [id number] Admin: 09/23/19 16:38 Dose: 80 mls/hr Documented by: [id number] Discontinued Medications Doxycycline Hyclate (Vibramycin) 100 mg PO BID [facility] Stop: 10/03/19 16:59 Last Admin: 09/26/19 08:28 Dose: 100 mg Documented by: [id number] Admin: 09/25/19 21:32 Dose: 100 mg Documented by: [id number] Admin: 09/25/19 07:43 Dose: 100 mg Documented by: [id number] Admin: 09/24/19 20:43 Dose: 100 mg Documented by: [id number] Admin: 09/24/19 08:11 Dose: 100 mg Documented by: [id number] Admin: 09/23/19 17:01 Dose: 100 mg Documented by: [id number] Gadobutrol (Gadavist 65ml) 7.5 ml IV ONCE PRN PRN Reason: Interaction Checking Stop: 09/27/19 13:10 Last Admin: 09/23/19 13:12 Dose: 7.5 ml Documented by: [id number] Medical Decision Making Differential Diagnosis Differential Diagnosis includes but is not limited to ischemic Stroke, hemorrhagic stroke, bells palsy, mass, neoplasm, migraine headache, seizure, subarachnoid hemorrhage, TIA, and transient global amnesia. Medical Records Attestation: I reviewed the patient's medical records. Home Medications Current Medication List: was personally reviewed by me Laboratory Data Attestation: I reviewed the patient's lab results. Result diagrams: 09/26/19 06:03 09/26/19 06:03 Lab Results 09/23/19 09/23/19 09/23/19 Range/Units 12:30 12:30 12:30 WBC 10.04 (4.8-10.8) K/uL RBC 4.87 (4.2-5.4) M/uL Hgb 15.1 (12.0-16.0) g/dL Hct 44.0 (37-47) % MCV 90.3 (80-100) fL MCH 31.0 (25-34) pg MCHC 34.3 (32-36) g/dL RDW Std Deviation 41.9 (36.4-46.3) fL RDW Coeff of Mireille 12.6 (11.5-14.5) % Plt Count 282 (130-400) K/uL MPV 9.4 (7.4-10.4) fL Immature Gran % (Auto) 0.2 % Neut % (Auto) 62.6 % Lymph % (Auto) 30.4 % [place] % (Auto) 6.0 % Eos % (Auto) 0.5 % Baso % (Auto) 0.3 % Immature Gran # (Auto) 0.02 (0.00-0.02) K/uL Neut # (Auto) 6.29 (1.4-6.5) K/uL Lymph # (Auto) 3.05 (1.2-3.4) K/uL [place] # (Auto) 0.60 H (0.11-0.59) K/uL Eos # (Auto) 0.05 (0-0.5) K/uL Baso # (Auto) 0.03 (0-0.2) K/uL PT 10.1 (9.0-12.0) Seconds INR 1.0 (0.9-1.1) APTT 26.5 (21.0-31.0) Seconds PTT Ratio 1.0 Sodium 138 (136-145) mmol/L Potassium 3.9 (3.5-5.1) mmol/L Chloride 107 (98-107) mmol/L Carbon Dioxide 26 (21-32) mmol/L Anion Gap 5.0 (3-11) BUN 10 (7-18) mg/dl Creatinine 1.12 (0.6-1.2) mg/dl Est Cr Clr Drug Dosing 72.9 ml/min Est GFR ( Amer) 79.6 Est GFR (Non-Af Amer) 68.7 BUN/Creatinine Ratio 8.8 L (10-20) Glucose 101 H (70-99) mg/dl Calcium 9.2 (8.5-10.1) mg/dl Magnesium 2.3 (1.8-2.4) mg/dl Total Bilirubin 0.2 (0.2-1) mg/dl AST 16 (15-37) U/L ALT 24 (12-78) U/L Alkaline Phosphatase 75 (45-117) U/L Troponin I < 0.015 (0-0.045) ng/ml Total Protein 8.6 H (6.4-8.2) gm/dl Albumin 3.9 (3.4-5.0) gm/dl Globulin 4.7 H (2.5-4.0) gm/dl Albumin/Globulin Ratio 0.8 L (0.9-2) Lyme Disease IgG Ab (Negative) Lyme IgG (Western Blot) (NEGATIVE) Lyme IgG 18 kDa Band Lyme IgG 23 kDa Band Lyme IgG 28 kDa Band Lyme IgG 30 kDa Band Lyme IgG 39 kDa Band Lyme IgG 41 kDa Band Lyme IgG 45 kDa Band Lyme IgG 58 kDa Band Lyme IgG 66 kDa Band Lyme IgG 93 kDa Band Lyme IgM Ab (WB) (NEGATIVE) Lyme Disease IgM Ab (Negative) Lyme IgM 23 kDa Band Lyme IgM 39 kDa Band Lyme IgM 41 kDa Band 09/23/19 09/23/19 Range/Units 12:30 12:30 WBC (4.8-10.8) K/uL RBC (4.2-5.4) M/uL Hgb (12.0-16.0) g/dL Hct (37-47) % MCV (80-100) fL MCH (25-34) pg MCHC (32-36) g/dL RDW Std Deviation (36.4-46.3) fL RDW Coeff of Mireille (11.5-14.5) % Plt Count (130-400) K/uL MPV (7.4-10.4) fL Immature Gran % (Auto) % Neut % (Auto) % Lymph % (Auto) % [place] % (Auto) % Eos % (Auto) % Baso % (Auto) % Immature Gran # (Auto) (0.00-0.02) K/uL Neut # (Auto) (1.4-6.5) K/uL Lymph # (Auto) (1.2-3.4) K/uL [place] # (Auto) (0.11-0.59) K/uL Eos # (Auto) (0-0.5) K/uL Baso # (Auto) (0-0.2) K/uL PT (9.0-12.0) Seconds INR (0.9-1.1) APTT (21.0-31.0) Seconds PTT Ratio Sodium (136-145) mmol/L Potassium (3.5-5.1) mmol/L Chloride (98-107) mmol/L Carbon Dioxide (21-32) mmol/L Anion Gap (3-11) BUN (7-18) mg/dl Creatinine (0.6-1.2) mg/dl Est Cr Clr Drug Dosing ml/min Est GFR ( Amer) Est GFR (Non-Af Amer) BUN/Creatinine Ratio (10-20) Glucose (70-99) mg/dl Calcium (8.5-10.1) mg/dl Magnesium (1.8-2.4) mg/dl Total Bilirubin (0.2-1) mg/dl AST (15-37) U/L ALT (12-78) U/L Alkaline Phosphatase (45-117) U/L Troponin I (0-0.045) ng/ml Total Protein (6.4-8.2) gm/dl Albumin (3.4-5.0) gm/dl Globulin (2.5-4.0) gm/dl Albumin/Globulin Ratio (0.9-2) Lyme Disease IgG Ab Negative (Negative) Lyme IgG (Western Blot) NEGATIVE (NEGATIVE) Lyme IgG 18 kDa Band NON-REACTIVE Lyme IgG 23 kDa Band NON-REACTIVE Lyme IgG 28 kDa Band NON-REACTIVE Lyme IgG 30 kDa Band NON-REACTIVE Lyme IgG 39 kDa Band REACTIVE A Lyme IgG 41 kDa Band NON-REACTIVE Lyme IgG 45 kDa Band NON-REACTIVE Lyme IgG 58 kDa Band NON-REACTIVE Lyme IgG 66 kDa Band NON-REACTIVE Lyme IgG 93 kDa Band NON-REACTIVE Lyme IgM Ab (WB) NEGATIVE (NEGATIVE) Lyme Disease IgM Ab Equivocal A (Negative) Lyme IgM 23 kDa Band NON-REACTIVE Lyme IgM 39 kDa Band NON-REACTIVE Lyme IgM 41 kDa Band NON-REACTIVE Imaging Data Radiologist's Impression: Radiology results as stated below per my review and the radiologist's interpretation: ADDENDUM Additionally, the area of restricted diffusion may correlate with an area of acu te active demyelination rather than a subacute infarct. Neurology consultation and workup recommended. Electronically signed by: Haider Christianson M.D. 09/23/2019 1:48 PM ADDENDUM END MR brain MS wo/w con HISTORY: 23 years-old Female L weakness, neg head CT yest, ataxia acute left arm numbness COMPARISON: None TECHNIQUE: Multiplanar multisequence MRI of the brain was obtained both with and without the use of 7.5 mL Gadavist FINDINGS: Environmental Services Associate localizer images demonstrate no gross abnormality. There is a focus of restricted diffusion involving the right frontal parietal lobe periventricular white matter measuring 3.8 x 2.1 cm in AP and transverse dimension with decreased signal on ADC map and increased T2/FLAIR signal which measures up to at least 2.4 cm in craniocaudal dimension. Minimal ill-defined enhancement within this distribution suggests subacute etiology. No additional restricted diffusion identified. The midline structures including the corpus callosum, brainstem, optic chiasm, and pituitary gland appear unremarkable. 3 mm pineal gland cyst incidentally noted. No cerebellar tonsillar herniation. The imaged cervical spine is unremarkable. No acute intracranial hemorrhage, midline shift, abnormal extra axial c ollection, hydrocephalus or intracranial mass. No additional abnormal enhancement. Moderate patchy T2/FLAIR hyperintensities in the subcortical and periventricular white matter of the bilateral cerebral hemispheres with small foci noted within the bilateral dentate nuclei of the middle cerebellar pe duncles, image 119 of series 800 and image 126 of series 800. Foci are also noted within the bilateral thalami. The imaged cervical spinal cord is unremarkable. The major vascular flow voids are unremarkable. Trace right mastoid effusion. Mild polypoid mucosal thickening with small air-fluid level of the left maxillary sinus. The skull, orbits and soft tissues are unremarkable. IMPRESSION: 1. 3.8 x 2.1 cm focus of restricted diffusion within the periventricular right frontal and parietal lobes is suggestive of an subacute infarct with mild associated enhancement and moderate cytotoxic edema. 2. No acute intracranial hemorrhage, midline shift or hydrocephalus. 3. Moderate patchy T2/FLAIR hyperintensities throughout the white matter of the bilateral cerebral hemispheres and also within the dentate nuclei of the bilateral middle cerebellar peduncles are nonspecific findings. Primary diff erential considerations include demyelinating disease versus gliosis from vasculitis with other etiologies not excluded. ACT 112: Negative or not required by law. The above report was generated using voice recognition software. It may contain grammatical, syntax or spelling errors. Electronically signed by: Haider Christianson M.D. 09/23/2019 1:34 PM ECG Data Attestation: I personally reviewed and interpreted this ECG as follows: Indication: + weakness Rate (beats per minute): 70 Rhythm: + normal sinus ECG Intervals/blocks: + Normal QT-c ECG [place]: + Normal ECG ST segments: no ST depression and no ST elevation ECG Findings: no PACs and no PVCs Comparison ECG Date: no prior available Blood Pressure Blood Pressure Findings: Elevated blood pressure Blood Pressure Disposition: further management by hospitalist [facility] Narrative Continuous Cardiac Monitoring: An order was placed for continuous cardiac monitoring. The monitor shows a rate of 70 with a normal sinus rhythm. This patient was evaluated and appeared to be in no significant distress. IV access was obtained and laboratory work was drawn. Patient was placed on the manager cardiac cath and found to be in a normal sinus rhythm. IV hydration was initiated. Patient has some focal deficit with coordination of the left greater than right upper extremity as well as some nasolabial fold flattening on the left. Records from her recent ER visit at an outside hospital were obtained and revealed a negative CT/CTA. Apparently the patient was supposed to have an out patient MRI however there was difficulty in getting this scheduled, therefore the patient presented to the emergency department. MRI of the brain was obtained with and without contrast. There is concern of a 3.8 x 2.1 cm focus of restricted diffusion in the periventricular right frontal and parietal lobes. After speaking with Dr. Christianson of radiology, he has determined that this is likely an area of acute active demyelination. I did discuss the case with Dr. Love of neurology who has recommended evaluation by the hospitalist service and neurologic consultation. No further medication recommendations were made at this time. Patient and mother were made aware of the plan and agree. I did consult the [facility] hospitalist, Dr. Botello who will evaluate the patient for further management. Impression & Plan Multiple sclerosis, Focal neurological deficit Discharge Plan Visit Data *Final* Discharge Date/Time: 09/23/19 15:25 Chief Complaint: Neuro Symptoms/Deficit Stated Complaint: LEFT SIDE OF BODY NUMBNESS ED Provider: Jessie Amaya Discharge Problem: Multiple sclerosis, Focal neurological deficit Patient Disposition: Admitted As Inpatient Discharge Instructions Interventions: ED Discharge Assessment Last Done: 09/23/19 15:25 The scribe's documentation has been prepared under my direction and personally reviewed by me in its entirety. I confirm that the note above accurately reflects all work, treatment, procedures, and medical decision making performed by me.
[2019-09-23] MEDS ORDERED: ONDANSETRON INJ 2 MG/ML 2 ML VIAL IV PRN (15:49)
[2019-09-23] MEDS ORDERED: POLYETHYLENE (MIRALAX) 17 GM PACK PO PRN (15:49)
[2019-09-23] MEDS ORDERED: ACETAMINOPHEN 325 MG TAB PO PRN (15:49)
[2019-09-23] MEDS ORDERED: NITROGLYCERIN SL 0.4 MG/TAB TAB SL PRN (15:49)
[2019-09-23] MEDS: SODIUM CHLORIDE 0.9% 1000ML 1,000 ML IV SCH (16:38)
[2019-09-23] MEDS: methylPREDNISolone 1,000 MG in DEXTROSE 5% 250 ML IV SCH (17:01)
[2019-09-23] MEDS: DOXYCYCLINE HYCLATE 100 MG CAP PO SCH (17:01)
--- NOTE | 2019-09-23 18:29 | History and Physical Report ---
DATE OF ADMISSION: 09/23/2019 CHIEF COMPLAINT: Left-sided weakness. HISTORY OF PRESENT ILLNESS: This is a 23-year-old female with no significant past medical history, presents with ongoing weakness and numbness in the left extremities since last Thursday. She says it is more on the left upper extremity than the lower extremity, some numbness and weakness and also some numbness on the left side of the face and she has some trouble walking. Three weeks ago, she had hives all over the body and that got resolved with Benadryl. About a month ago, she had a migraine headache and question of some rash. She went to [facility] yesterday and they did a CAT scan, which was unremarkable and she came here. An MRI scan was done, showing possible demyelinating disease. On Lyme screen, IgM was equivocal. Speech clear. No dysphagia.Currently, denies any headache, no blurred vision, no double vision, no earache, no sore throat, no cough, no fever, no chills, no chest pain, no shortness of breath, no nausea, no abdominal pain. Normal bowel and bladder movements. No melena or hematochezia. No hematuria or burning micturition, no swelling in the legs. She is a single mom and she lives alone. Parents are in the Room currently. The patient smokes half pack a day and she is trying to quit. She just started Chantix 6 days ago and she is on control pills. ALLERGIES: No known drug allergies. PAST MEDICAL HISTORY: As mentioned above. PAST SURGICAL HISTORY: None. MEDICATIONS: Chantix and control pills. FAMILY HISTORY: No significant family history. SOCIAL HISTORY: She is a single mom, lives alone. Smokes half pack a day for many years. Alcohol once every 2 weeks. No drug use. REVIEW OF SYMPTOMS: As per HPI. Rest of the review of symptoms is negative. PHYSICAL EXAMINATION: GENERAL: The patient is of moderate built, not in acute distress. VITAL SIGNS: Temperature 36.8, pulse 84, respiratory rate 18, blood pressure 113/75, oxygen 98% on room air. HEENT: No pallor, no icterus. Pupils equal, round, and reactive to light. NECK: Supple, no neck masses. CARDIOVASCULAR: S1, S2 heard, regular rate and rhythm, no murmur, no gallop. RESPIRATORY SYSTEM: Normal AP diameter. No accessory muscle use. No wheezing, no crackles. ABDOMEN: Soft, bowel sounds present, nontender. No distention. CENTRAL NERVOUS SYSTEM: Alert and oriented. Speech is clear. Power 4/5 in left sided extremities, some decreased sensation on the left side of face and left upper extremity. Coordination of movements normal. Could not do a pronator drift because of not able to lift her left upper extremity totally up. EXTREMITIES: No edema, no erythema. LABORATORY DATA: WBC 10, hemoglobin 15.1, hematocrit 44, platelets 282. PT 10.1, INR 1, APTT 26.5. Sodium 138, potassium 3.9, chloride 107, bicarbonate 26, BUN 10, creatinine 1.1, serum glucose 101, calcium 9.2, magnesium 2.3, total bilirubin 0.2, AST 16, ALT 24, alkaline phosphatase 74. Troponin I less than 0.015. Lyme disease; IgG is negative, IgM equivocal. Brain MRI shows a 3.8 x 2.1 cm focus of restricted diffusion within the periventricular right frontal and parietal lobes suggestive of a subacute infarct. Moderate patchy hyperintensity throughout the white matter of the bilateral cerebral hemispheres and also within the dentate nuclei of the bilateral middle cerebellar peduncles are nonspecific findings. Primary differential considerations include demyelinating disease versus gliosis from vasculitis. later addendum: initial mentioned subacute infarct mostly demyelinating lesion. EKG: Normal sinus rhythm, rate of 70, no acute ST changes seen. ASSESSMENT AND PLAN: This is a 23-year-old female who presents with left-sided numbness and weakness and found to have a possible demyelinating disease. 1. Possible multiple sclerosis with demyelinating disease on the MRI scan with left-sided weakness and numbness. Neurology is consulted. Plan for multiple sclerosis workup with MRI scan of the total spine and lumbar puncture. Started on high dose steroids 1 gram daily for 4 days. Monitor on medical/surgical telemetry. Lyme screen equivocal; we will empirically start on doxycycline until further results are back.Neurology consult. ID consult. Will also get echo as initial reading question of subacute infarct. 2. Deep venous thrombosis prophylaxis, sequential compression devices. DISPOSITION: Closely monitor in the med/surg tele. Level 1, full code. MTDD
--- NOTE | 2019-09-23 18:36 | Electrocardiogram Report ---
Test Reason : Blood Pressure : / mmHG Vent. Rate : 070 BPM Atrial Rate : 070 BPM P-R Int : 134 ms QRS Dur : 076 ms QT Int : 380 ms P-R-T Axes : 050 084 060 degrees QTc Int : 410 ms Normal sinus rhythm Possible Left atrial enlargement Low voltage QRS Abnormal ECG No previous ECGs available Confirmed by Baldev Whitney ([id number]) on 09/23/2019 6:36:19 PM Referred By: REFERRED SELF Confirmed By:Wojciech Whitney
[2019-09-24 05:45] LABS: Basophils # (auto) 0.01 K/uL (0-0.2); Basophils % (auto) 0.1 %; Hematocrit (blood only) 42.1 % (37-47); Hemoglobin 14.2 g/dL (12.0-16.0); Immature Granulocytes # (auto) 0.04 K/uL (0.00-0.02); Immature Granulocytes % (auto) 0.3 %; Lymphocytes # (auto) 1.71 K/uL (1.2-3.4); Lymphocytes % (auto) 13.2 %; Mean Corpuscular Hemoglobin 30.1 pg (25-34); Mean Corpuscular Hgb Conc 33.7 g/dL (32-36); Mean Corpuscular Volume 89.2 fL (80-100); Mean Platelet Volume 9.4 fL (7.4-10.4); Monocytes # (auto) 0.12 K/uL (0.11-0.59); Monocytes % (auto) 0.9 %; Neutrophils # (auto) 11.07 K/uL (1.4-6.5); Neutrophils % (auto) 85.5 %; Platelet Count 286 K/uL (130-400); RDW Coefficient of Variation 12.5 % (11.5-14.5); RDW Standard Deviation 40.4 fL (36.4-46.3); Red Blood Count 4.72 M/uL (4.2-5.4); White Blood Count 12.95 K/uL (4.8-10.8)
[2019-09-24] MEDS: SODIUM CHLORIDE 0.9% 1000ML 1,000 ML IV SCH ×2 (06:13→21:27)
[2019-09-24 06:28] LABS: BUN Creatinine Ratio 10.1 (10-20); Calcium 8.6 mg/dl (8.5-10.1); Creatinine Clr Calc Pharmacy 89.9 ml/min; Est GFR (African American) 103.7; Est GFR (Non-African American) 89.5; Magnesium 1.9 mg/dl (1.8-2.4); Potassium 4.1 mmol/L (3.5-5.1)
--- NOTE | 2019-09-24 07:46 | Hospitalist Progress Note ---
Date of Service September 24, 2019 Assessment & Plan (1) Multiple sclerosis: (2) Focal neurological deficit: (3) Demyelinating changes in brain: (4) Abnormal MRI of head: (5) Diet controlled gestational diabetes mellitus (GDM) in third trimester: ASSESSMENT AND PLAN: This is a 23-year-old female who presents with left-sided numbness and weakness and found to have a possible demyelinating disease. 1. Possible multiple sclerosis with demyelinating disease on the MRI scan with left-sided weakness and numbness. Neurology is consulted. Plan for multiple sclerosis workup with MRI scan of the total spine and lumbar puncture. Started on high dose steroids 1 gram daily for 4 days. Monitor on medical/surgical telemetry. Lyme screen equivocal; we will empirically start on doxycycline until further results are back. Neurology on case. ID consult. Echo as initial reading question of subacute infarct. 2. Deep venous thrombosis prophylaxis, sequential compression devices. labs checked, LP pending ROS-No Headache, No Visual Changes, No Nausea, No Vomiting, No Fever, No Chills, No Neck Pain or Stiffness, No Chest Pain, No Palpitations, No SOB, No MOE, No Cough, No Sputum, No Wheezing, No Abdominal Pain, No Diarrhea, No Hematemesis, No Hemoptysis, No Unexpected Weight Loss, No Flank pain, No Melena, No Hematochezia, No Frequency, No Urgency, No Burning, No Hematuria, No Rashes, No Diaphoresis. Appetite is Normal Physical Exam Gen-AAO x 3, NAD, Afebrile Head-NCAT, EOMI, PERRLA, Anicteric Sclera, No Posterior Pharyngeal Erythema Neck-Supple, No JVD, No Thyromegaly, No Masses, No LAD, No Bruits Lungs-Clear to Auscultation Bilaterally, No Rales, No Rhonchi, No Wheezing, No Crepitus Chest-No S4, +S1, +S2, No S3, No Murmurs, No Rubs, No Gallops, No Ectopy Abdomen-Soft, Bowel Sounds Present, Non Tender, Non Distended, No Hepatomegaly, No Splenomegaly, No Palpable Masses, No Rebound, No Rigidity, No Guarding Musculoskeletal-Full Range of Motion Bilaterally, No CVAT Extremities-No Cyanosis, No Clubbing, No Edema Nuero-Cranial Nerves II-XII grossly intact, Motor WNL, DTRs WNL, Strength WNL, Non Focal Psych-Normal Mood Admission and Anticipated Discharge Date Admission Date: September 23, 2019 Results & Data ([facility]) Vital Signs (Past 12 Hours) Vital Signs Temp Pulse Pulse Resp BP Pulse Ox 09/24/19 03:08 36.8 C 77 18 111/70 96 09/24/19 00:03 79 09/23/19 23:00 36.7 C 92 H 18 108/70 97
[2019-09-24] MEDS: DOXYCYCLINE HYCLATE 100 MG CAP PO SCH ×2 (08:11→20:43)
[2019-09-24 09:35] LABS: 18KDIGG Band NON-REACTIVE; 23KDIGG Band NON-REACTIVE; 23KDIGM Band NON-REACTIVE; 28KDIGG Band NON-REACTIVE; 30KDIGG Band NON-REACTIVE; 39KDIGG Band REACTIVE; 39KDIGM Band NON-REACTIVE; 41KDIGG Band NON-REACTIVE; 41KDIGM Band NON-REACTIVE; 45KDIGG Band NON-REACTIVE; 58KDIGG Band NON-REACTIVE; 66KDIGG Band NON-REACTIVE; 93KDIGG Band NON-REACTIVE; Lyme Antibodies, WB IgG NEGATIVE (NEGATIVE); Lyme Antibodies, WB IgM NEGATIVE (NEGATIVE)
[2019-09-24] MEDS ORDERED: GADOBUTROL 65ML VIAL IV PRN (12:00)
--- NOTE | 2019-09-24 12:32 | Communication Note ---
Date of Service: September 24, 2019 I saw Sharmila today she is doing a little better emotionally had a little trouble sleeping probably because of the steroids and has a bit of a flushing of her face also probably due to the steroids and she still has significant degree of clumsiness and sensory loss in the left arm and face but otherwise examination is pretty unremarkable revealing only the minimal hemiparesis and hemisensory deficit with some loss of facility rapid repetitive motions in the left hand and slight left upper motor neuron facial paresis but lower extremity function appears to be reasonably good and symmetrical. There is a little bit of hyperreflexia on the left but drift of the left upper extremity and this is perhaps minimally better than yesterday but it is too early to really make any statements and she is going need a few more days of IV Solu-Medrol before we can really conclude anything I have added some laboratory studies including an TARIK, rheumatoid factor, vitamin D level, sedimentation rate, and a protein electrophoresis in addition to an angiotensin-converting enzyme level but frankly I do not think we are going to find any significant abnormalities on these other than perhaps a speckled TARIK which is not uncommon in individuals with demyelinating disease and on an outpatient basis we will be doing a study to eliminate the entity of neuromyelitis optica but frankly I doubt this will be the diagnosis Imaging studies of the neck and thoracic spine are done but imaging is not really available for my review. I did look at the STIR images on the cervical spine and was not impressed with any findings but again we need to have the whole series and radiologic interpretation I will check back tomorrow hopefully will which point we will have results of the studies and will see how she is done on second day of IV Solu-Medrol Plans are to give her another 2 days of IV Solu-Medrol and at some point during this hospital stay get a lumbar puncture done with appropriate diagnostic studies for demyelinating disease and other entities Thus far Lyme titer and Western blot is not consistent with Lyme disease but clinically I would have doubted this anyway although there was apparently a recent tick bite so we need to do eliminate this Eric oLve MD
--- NOTE | 2019-09-24 12:58 | Magnetic Resonance Report ---
MRI OF THE THORACIC SPINE COMBO CLINICAL HISTORY: Multiple sclerosis. COMPARISON STUDY: No priors. TECHNIQUE: MRI of the thoracic spine is performed using various T1 and T2-weighted sequences in the a xial and sagittal planes. Contrast-enhanced sequences are acquired following the IV administration of 7.5 cc of Gadavist. FINDINGS: Vertebral body height and alignment are maintained throughout the thoracic spine. Normal ma rrow signal intensity is preserved throughout the visualized bony structures. Question a tiny hemangi tonya in the body of T7. The spinous processes appear maintained. The intervertebral discs are normal i n height and signal intensity. There is no disc herniation or central canal stenosis. There is no cayden dence of neural foraminal stenosis. The thoracic spinal cord is normal in morphology and signal inten sity. The conus medullaris terminates at the level of L1. No abnormal postcontrast enhancement is terese ntified. The paraspinous soft tissues are normal as imaged. The lung parenchyma is grossly unremarkab le but not well evaluated by MRI. IMPRESSION: 1. The thoracic spinal cord is normal in morphology and signal intensity. No abnormal postcontrast en hancement is seen. 2. No degenerative change is identified. The central canal is widely patent. Dictated: 09/24/2019 12:34 PM Transcribed: 09/24/2019 12:40 PM Flory [id number] CE_Aide Electronically signed by: Stone Bishop M.D. 09/24/2019 12:57 PM
--- NOTE | 2019-09-24 12:59 | Magnetic Resonance Report ---
MRI OF THE CERVICAL SPINE COMBO CLINICAL HISTORY: Multiple sclerosis. COMPARISON STUDY: No priors. TECHNIQUE: MRI of the cervical spine is performed using various T1 and T2-weighted sequences in the a xial and sagittal planes. Contrast-enhanced sequences are acquired following the IV administration of 7.5 cc of Gadavist. FINDINGS: Cervical spine: Vertebral body height and alignment are maintained throughout the cervical spine. Nor mal marrow signal intensity is preserved throughout the visualized bony structures. The atlantodental articulation is maintained. The spinous processes appear intact. No destructive bony lesion is seen. Intervertebral discs: Normal in height and signal intensity. Spinal cord: Question a 4 mm focus of T2 signal abnormality within the left aspect of the cord at the level of C6. This is only seen on the axial merge sequence, and cannot be corroborated on the sagitt al sequences. There is no associated abnormal postcontrast enhancement. The cervical spinal cord is o therwise normal in morphology and signal intensity. C2-C3: Minimal facet arthropathy is of no consequence. The central canal and neural foramina are hart nt. C3-C4: Unremarkable. C4-C5: Unremarkable. C5-C6: Unremarkable. C6-C7: Unremarkable. C7-T1: Unremarkable. Brain parenchyma: Partially visualized brain parenchyma at the skull base shows a 9 mm T2 hyperintens e focus within the left cerebellar hemisphere. Tiny foci of signal abnormality are also seen within t he right cerebellar hemisphere. Soft tissues: The prevertebral and paraspinous soft tissues are normal as visualized. IMPRESSION: 1. Question a 4 mm focus of signal abnormality within the left aspect of the cervical cord at C6. 2. The cervical cord is otherwise normal in morphology and signal intensity. No abnormal postcontrast enhancement is identified. 3. No significant degenerative change is identified. Dictated: 09/24/2019 12:27 PM Transcribed: 09/24/2019 12:39 PM Flory [id number] CE_Aide Electronically signed by: Stone Bishop M.D. 09/24/2019 12:57 PM
--- NOTE | 2019-09-24 14:11 | Magnetic Resonance Report ---
MRI OF THE LUMBAR SPINE COMBO CLINICAL HISTORY: Multiple sclerosis. COMPARISON STUDY: No priors. TECHNIQUE: MRI of the lumbar spine is performed utilizing various T1 and T2-weighted sequences in the axial and sagittal planes. Contrast-enhanced sequences were acquired following the IV administration of 7.5 cc of Gadavist. FINDINGS: Lumbar spine: Vertebral body height and alignment are maintained throughout the lumbar spine. Normal marrow signal intensity is preserved throughout the visualized bony structures. The transverse and sp inous processes are intact. There is no evidence of spondylolysis. No destructive bony lesion is seen . Levocurvature is noted at the thoracolumbar junction. Intervertebral discs: Normal in height and signal intensity. Spinal cord: The visualized spinal cord is normal in morphology and signal intensity. The conus medul lea terminates at the L1-L2 interspace. The nerve roots of the cauda equina are normal in morpholog y. No abnormal postcontrast enhancement is identified. L1-L2: Unremarkable. L2-L3: Unremarkable. L3-L4: The central canal and neural foramina are patent. Mild facet arthropathy is of no consequence. L4-L5: Mild facet arthropathy is of no consequence. There are trace facet joint effusions. The centra l canal and neural foramina are patent. L5-S1: Unremarkable. Sacrum: The visualized sacrum is normal in morphology and signal intensity. Soft tissues: The paraspinous soft tissues are normal in appearance. The partially imaged retroperito francy structures are grossly unremarkable but incompletely assessed. IMPRESSION: 1. Unremarkable assessment of the distal spinal cord and the nerve roots of the cauda equina. There i s no abnormal postcontrast enhancement. 2. There is no disc herniation, central canal stenosis, or neural foraminal narrowing seen throughout the lumbar spine. 3. Levocurvature is noted at the thoracolumbar junction. Dictated: 09/24/2019 1:23 PM Transcribed: 09/24/2019 2:09 PM Flory [id number] CE_Aide Electronically signed by: Stone Bishop M.D. 09/24/2019 2:10 PM
[2019-09-24] MEDS: methylPREDNISolone 1,000 MG in DEXTROSE 5% 250 ML IV SCH (17:10)
[2019-09-25 06:20] LABS: Hemoglobin 12.9 g/dL (12.0-16.0); Mean Corpuscular Hemoglobin 30.4 pg (25-34); Mean Corpuscular Hgb Conc 33.9 g/dL (32-36); Mean Corpuscular Volume 89.6 fL (80-100); Mean Platelet Volume 10.2 fL (7.4-10.4); Platelet Count 268 K/uL (130-400); RDW Coefficient of Variation 12.8 % (11.5-14.5); RDW Standard Deviation 41.6 fL (36.4-46.3); Red Blood Count 4.24 M/uL (4.2-5.4); White Blood Count 16.32 K/uL (4.8-10.8)
[2019-09-25 06:55] LABS: BUN Creatinine Ratio 11.3 (10-20); Calcium 8.5 mg/dl (8.5-10.1); Creatinine Clr Calc Pharmacy 1.3 ml/min; Est GFR (African American) 111.2; Est GFR (Non-African American) 95.9; Potassium 3.9 mmol/L (3.5-5.1)
[2019-09-25] MEDS: DOXYCYCLINE HYCLATE 100 MG CAP PO SCH ×2 (07:43→21:32)
--- NOTE | 2019-09-25 08:51 | Hospitalist Progress Note ---
Date of Service September 25, 2019 Assessment & Plan (1) Multiple sclerosis: (2) Focal neurological deficit: (3) Demyelinating changes in brain: (4) Abnormal MRI of head: (5) Diet controlled gestational diabetes mellitus (GDM) in third trimester: ASSESSMENT AND PLAN: This is a 23-year-old female who presents with left-sided numbness and weakness and found to have a possible demyelinating disease. 1. Possible multiple sclerosis with demyelinating disease on the MRI scan with left-sided weakness and numbness. Neurology on case. Plan for multiple sclerosis workup with MRI scan of the total spine and lumbar puncture. On high dose steroids 1 gram daily for 4 days. Monitor on medical/surgical telemetry. Lyme screen equivocal; we will empirically start on doxycycline until further results are back. Neurology on case. ID consult. Echo as initial reading question of subacute infarct. 2. Deep venous thrombosis prophylaxis, sequential compression devices. labs checked, LP pending ROS-No Headache, No Visual Changes, No Nausea, No Vomiting, No Fever, No Chills, No Neck Pain or Stiffness, No Chest Pain, No Palpitations, No SOB, No MOE, No Cough, No Sputum, No Wheezing, No Abdominal Pain, No Diarrhea, No Hematemesis, No Hemoptysis, No Unexpected Weight Loss, No Flank pain, No Melena, No Hematochezia, No Frequency, No Urgency, No Burning, No Hematuria, No Rashes, No Diaphoresis. Appetite is Normal Physical Exam Gen-AAO x 3, NAD, Afebrile Head-NCAT, EOMI, PERRLA, Anicteric Sclera, No Posterior Pharyngeal Erythema Neck-Supple, No JVD, No Thyromegaly, No Masses, No LAD, No Bruits Lungs-Clear to Auscultation Bilaterally, No Rales, No Rhonchi, No Wheezing, No Crepitus Chest-No S4, +S1, +S2, No S3, No Murmurs, No Rubs, No Gallops, No Ectopy Abdomen-Soft, Bowel Sounds Present, Non Tender, Non Distended, No Hepatomegaly, No Splenomegaly, No Palpable Masses, No Rebound, No Rigidity, No Guarding Musculoskeletal-Full Range of Motion Bilaterally, No CVAT Extremities-No Cyanosis, No Clubbing, No Edema Nuero-Cranial Nerves II-XII grossly intact, Motor Weak on L, Decreased Strength L Psych-Normal Mood Admission and Anticipated Discharge Date Admission Date: September 23, 2019 Results & Data ([facility]) Vital Signs (Past 12 Hours) Vital Signs Temp Pulse Pulse Resp BP Pulse Ox 09/25/19 07:00 37 C 65 18 110/62 95 09/25/19 03:20 36.8 C 85 18 113/70 95 09/25/19 00:58 74 09/24/19 22:51 36.7 C 82 20 122/78 97
[2019-09-25] MEDS: SODIUM CHLORIDE 0.9% 1000ML 1,000 ML IV SCH (09:56)
--- NOTE | 2019-09-25 12:53 | Communication Note ---
Date of Service: September 25, 2019 I saw Sharmila today reviewed her chart and unfortunately she is not responding that well to the 2 g of Solu-Medrol which she has received to date. She is getting some contractures of her left hand and feels the hand is still clumsy but does not feel it is quite as numb as it had been and on exam she has the clumsiness of the left hand the loss of rapid repetitive motions in the left arm, drift and pronation sign, left upper motor neuron facial paresis, minimal if any sensory loss to light touch temperature and pinprick touch doing, some slight hyperreflexia, positive Mendez signs and nothing really of significance in the lower extremity and no visual disturbances clear speech and a somewhat flattened affect today She is still on doxycycline which was initiated once the Lyme antibody screen was positive but looking over the labs I see that the Western blots for igg and igm have all been essentially normal or least a critical banding for diagnosis of Lyme disease is negative. Infectious disease was consulted but has not made a visit to the chart yet and I will be curious whether they recommend continuing this or not. CSF analysis is pending hopefully the lumbar puncture will be done tomorrow but we will not have any the results of the demyelinating panel for at least 2 weeks Initial MRI scan was felt to be consistent with an infarct but the history suggests that this came on evolved over a day or 2 and the enhancement and overall pattern in my mind is more suggestive of an area of demyelination which is of generous size and accompanied by multiple other areas of demyelination in the cerebellum brainstem and subcortical white matter. Clinically the picture would be more likely that of multiple sclerosis but she is going to get an echocardiographic study and we may end up doing a CT angiographic study for sake of completeness at some point just to clear the air diagnostically The work-up for vasculitis is underway with a normal sedimentation rate but a pending TARIK, rheumatoid factor, immunoglobulin analysis and angiotensin- converting enzyme titer Hopefully the lumbar puncture will be done tomorrow under fluoroscopy and a clean sample fluid will be obtained. I suspect there may well be some elevation in the white count is area of demyelination is rather large and are some small foci of enhancement within it so a few lymphocytes in the fluid would not be surprising Plans are to continue the steroids, await the results of the echocardiogram, infectious disease opinion and to switch her over to oral therapy Thursday after her last IV Solu-Medrol tomorrow and probably observe her overnight after the lumbar puncture and have an opportunity to review the initial results and to attempt to minimize her risk for post lumbar puncture headache Assuming that this does eventually prove to be multiple sclerosis then treatment decisions will have to be made on an outpatient basis. The MRI scans of the cervical and thoracic spines have shown a very equivocal area of demyelination in the left side of the cord at C5-6 but this does not appear to enhance but could be an additional lesion that is contributing to some of the pyramidal tract dysfunction involving the left arm The thoracic spine is normal If indeed there is evidence for a large demyelinating plaque in the brain- as there seems to be-and another plaque in the cervical cord then treatment on an outpatient basis will probably have to be more aggressive and frankly I wonder if this woman should not be placed on Ocrevus as an initial approach Were it not for the size of the lesion, the significance of her clinical deficits, and the presence of a cervical lesion I would probably start her on either Copaxone or Betaseron leaning towards Betaseron as the onset of disease modifying therapy with that agent is more rapid than with Copaxone but now with the possible presence of a cord lesion and the large lesion in the right centrum semiovale, I suspect we are going to obtain an outpatient consultation with our multiple sclerosis group in [place] and have them make a decision about how best to approach this woman initially We will stop by tomorrow hopefully after lumbar puncture and after receipt of another gram of Solu-Medrol and I am hopeful that she will begin to improve at that point as most inflammatory demyelinating lesions do show some improvement after several days of high-dose IV steroids. If she does not improve we may end up looking at the extracranial and intracranial vascular compartments just to be certain that she did not have a CVA in addition to what I think is undoubtedly demyelinating disease but I would prefer to explain all of this on the basis of one disease rather than having to postulate multiple diagnoses Eric Love MD
[2019-09-25] MEDS: methylPREDNISolone 1,000 MG in DEXTROSE 5% 250 ML IV SCH (15:46)
[2019-09-26] MEDS: SODIUM CHLORIDE 0.9% 1000ML 1,000 ML IV SCH ×3 (05:57→18:28)
[2019-09-26 06:46] LABS: Hemoglobin 12.8 g/dL (12.0-16.0); Mean Corpuscular Hemoglobin 30.3 pg (25-34); Mean Corpuscular Hgb Conc 33.7 g/dL (32-36); Platelet Count 256 K/uL (130-400); RDW Standard Deviation 42.4 fL (36.4-46.3); Red Blood Count 4.22 M/uL (4.2-5.4); White Blood Count 13.64 K/uL (4.8-10.8)
[2019-09-26 07:09] LABS: BUN Creatinine Ratio 14.2 (10-20); Calcium 8.6 mg/dl (8.5-10.1); Creatinine Clr Calc Pharmacy 94.9 ml/min; Est GFR (African American) 108.1; Est GFR (Non-African American) 93.2
[2019-09-26] MEDS: DOXYCYCLINE HYCLATE 100 MG CAP PO SCH (08:28)
--- NOTE | 2019-09-26 08:39 | Hospitalist Progress Note ---
Date of Service September 26, 2019 Assessment & Plan (1) Multiple sclerosis: (2) Focal neurological deficit: (3) Demyelinating changes in brain: (4) Abnormal MRI of head: (5) Diet controlled gestational diabetes mellitus (GDM) in third trimester: ASSESSMENT AND PLAN: This is a 23-year-old female who presents with left-sided numbness and weakness and found to have a possible demyelinating disease. 1. Possible multiple sclerosis with demyelinating disease on the MRI scan with left-sided weakness and numbness. Neurology on case. Plan for multiple sclerosis workup with MRI scan of the total spine and lumbar puncture. On high dose steroids 1 gram daily for 4 days. Not responding. Monitor on medical/surgical telemetry. Lyme screen equivocal; we will empirically start on doxycycline until further results are back. Neurology on case. ID to see. Echo as initial reading question of subacute infarct. 2. Deep venous thrombosis prophylaxis, sequential compression devices. labs checked, LP Today, Serologies pending ROS-No Headache, No Visual Changes, No Nausea, No Vomiting, No Fever, No Chills, No Neck Pain or Stiffness, No Chest Pain, No Palpitations, No SOB, No MOE, No Cough, No Sputum, No Wheezing, No Abdominal Pain, No Diarrhea, No Hematemesis, No Hemoptysis, No Unexpected Weight Loss, No Flank pain, No Melena, No Hematochezia, No Frequency, No Urgency, No Burning, No Hematuria, No Rashes, No Diaphoresis. Appetite is Normal, Not improving yet Physical Exam Gen-AAO x 3, NAD, Afebrile Head-NCAT, EOMI, PERRLA, Anicteric Sclera, No Posterior Pharyngeal Erythema Neck-Supple, No JVD, No Thyromegaly, No Masses, No LAD, No Bruits Lungs-Clear to Auscultation Bilaterally, No Rales, No Rhonchi, No Wheezing, No Crepitus Chest-No S4, +S1, +S2, No S3, No Murmurs, No Rubs, No Gallops, No Ectopy Abdomen-Soft, Bowel Sounds Present, Non Tender, Non Distended, No Hepatomegaly, No Splenomegaly, No Palpable Masses, No Rebound, No Rigidity, No Guarding Musculoskeletal-Full Range of Motion Bilaterally, No CVAT Extremities-No Cyanosis, No Clubbing, No Edema Nuero-Cranial Nerves II-XII grossly intact, Motor Weak on L, Decreased Strength L Psych-Normal Mood Admission and Anticipated Discharge Date Admission Date: September 23, 2019 Results & Data ([facility]) Vital Signs (Past 12 Hours) Vital Signs Temp Pulse Pulse Resp BP Pulse Ox 09/26/19 07:00 36.8 C 85 16 118/75 95 09/26/19 03:20 36.8 C 61 18 118/73 97 09/25/19 23:05 36.8 C 62 18 115/74 97 09/25/19 22:20 90
--- NOTE | 2019-09-26 09:09 | Infectious Disease Consult ---
Date of Consultation September 26, 2019 Assessment & Plan (1) Multiple sclerosis: no evidence of lyme disease, can stop doxy. will sign off. History of Present Illness Attending Physician: Lukasz Chapin DO pt admitted with extremity numbness, seen by neurology, felt to be MS, on IV steroids, feeling better, asking to go home. lyme titers done upon admission and ID consulted for ?lyme disease. titer negative 0/3 IgM bands 1/10 IgG, she was placed on doxy and remains on this, tolerating well. no f/c. no rashes, no joint pain, no mar, no abd pain, no n/v/d, no cp, sob, cough. Allergies Allergy/AdvReac Type Severity Reaction Status Date / Time No Known Allergies Allergy Unverified 09/23/19 13:55 Home Medications Home Medications Medication Instructions Recorded Confirmed Type norethindrone ac-eth estradiol 1 tab PO QAM 09/23/19 09/23/19 History [Microgestin 1.5/30 (21)] varenicline [Chantix Continuing 1 mg PO BID 09/23/19 09/23/19 History Month Box] Patient History Medical History Scoliosis Surgical History No pertinent past surgical history Social History Preferred Language: [place] Communication Ability: Effective Beliefs That Will Affect Care: None marital status: Single Current Living Situation: Alone Current Living Situation Comment: home alone with a child Feels Safe at Home: Yes Safety Concerns: Feels Safe At This Time Smoking Status: Current every day smoker Tobacco Type: cigarettes ; Hx Alcohol Use: No Hx Substance Use: No Review of Systems Review of Systems: All systems reviewed & are unremarkable except as noted in HPI & below Physical Exam Constitutional: WD/WN, vitals as above Eyes: PERRL, conjunctivae normal, anicteric sclerae ENMT: external ear and nose normal, oropharynx normal Neck: normal visual inspection Respiratory: normal respiratory effort, lungs clear to auscultation Cardiovascular: RRR, no murmur, no edema Gastrointestinal (Abdomen): normal bowel sounds, soft, nontender, no hepatosplenomegaly Musculoskeletal: no cyanosis or clubbing, extremities motor strength 5/5 Skin: no rashes, warm and dry Psychiatric: A+Ox3, euthymic affect Results & Data ([facility]) Vital Signs (Past 12 Hours) Vital Signs Temp Pulse Pulse Resp BP Pulse Ox 09/26/19 07:00 36.8 C 85 16 118/75 95 09/26/19 03:20 36.8 C 61 18 118/73 97 09/25/19 23:05 36.8 C 62 18 115/74 97 09/25/19 22:20 90 PG Care Time/CCT Total # of Minutes Spent Total Time Spent with Patient: Total time spent is greater than 50% in coordination of care (as documented) at patient's floor/unit and/or counseling patient: Coding Level of Care Code 29362 Inpt Consult Level 4 Diagnoses Multiple sclerosis G35
[2019-09-26] MEDS ORDERED: ACETAMINOPHEN 500 MG TAB PO PRN (13:50)
--- NOTE | 2019-09-26 13:55 | Fluoroscopy Report ---
FLUOROSCOPICALLY GUIDED LUMBAR PUNCTURE CLINICAL HISTORY: Suspect Multiple Sclerosis. Weakness. FLUOROSCOPY TIME: 0.2 minutes. A single fluoroscopic spot images submitted PROCEDURE: The procedure, risks and benefits were discussed with the patient including the risk of s billy headache, bleeding and infection. The patient agreed to the procedure and informed written cons ent was obtained. The procedure was performed by Dr. Salvador following a timeout. The left L5-S1 in terlaminar space was targeted. Skin overlying the space was prepped and draped in the usual sterile f ashion and local anesthesia was achieved with 1% lidocaine. Under intermittent fluoroscopic guidance, a 20-gauge x 3 1/2 in. Sprotte needle was inserted into the thecal sac. A total of 10 cc of clear, c olorless cerebral spinal fluid was obtained and spread amongst 4 vials. The patient tolerated the pro cedure well. There were no immediate complications. The specimens were sent to the laboratory at the request of the referring physician. IMPRESSION: Successful fluoroscopic guided lumbar puncture with removal of 10 cc of clear, colorless cerebral spinal fluid. No immediate complications. ACT 112: Negative or not required by law. Electronically signed by: Tristen Salvador M.D. 09/26/2019 1:54 PM
[2019-09-26 14:24] LABS: Total Protein CSF 34.6 mg/dl (15-45)
[2019-09-26 14:25] LABS: Appearance CSF Clear; CSF Count Tube # 3; Color CSF Colorless
[2019-09-26 14:26] LABS: CSF Xanthrochromic No xanthochromia; Red Blood Cell CSF (A) 0 /uL (0-); Red Blood Cell CSF (B) 0 /uL (0-); White Blood Cell CSF (A) 8 /uL (0-5); White Blood Cell CSF (B) 6 /uL (0-5)
--- NOTE | 2019-09-26 15:17 | Neurology Progress Note ---
Date of Service September 26, 2019 Assessment & Plan (1) Abnormal MRI of head: 1. MRI - demyelinating disease burden 2. IV methylpredisolone 1 g x 4 days then oral prednisone taper prednisone 80 mg x 2 days, then 60 mg x 2 days, then 40 mg x 2 days, then 30mg x 2 days, 20 mg x 2 days, 10 mg x 2 days then stop 3. LP - CSF studies MS, Lyme, cell count, angio tension ab, glucose, protein, gram stain, cell count with diff, 4. MRI c/t/l spine with and without contrast- lesion in C spine level of C6 5. will arrange for follow up with MS specialist as outpatient to discuss further treatment once definitive diagnosis is made 6. If unable to have LP today ok to wait for radiology to have done over or Thursday 7. keep well hydrated with H2O after lumbar puncture 8. if headache develops may need blood patch she will call if needed 9. ok to discharge tomorrow once medically stable (2) Demyelinating changes in brain: Admission and Anticipated Discharge Date Admission Date: September 23, 2019 Supervising Physician Co-Signing Physician Notes I have seen and discussed above patient with Dr Eric Love, neurology I saw Sharmila today in the company of her mother and find her to be somewhat improved in terms of her left facial weakness and perhaps slight dysarthria speech but her left hand remains clumsy with a drift pronation sign and proximal weakness although this is getting better and the leg is improved although was never very involved to begin with. Physical therapy apparently feels she is safe to go home but I do not believe she should try to work until we see her back in our office in about 2 to 3 weeks and have a chance to review her status, her response to continued steroids now with an oral course and will then be able to review the results of the CSF studies I would hold off for another MRI of her brain as she if anything is a little better certainly is no worse and another imaging study is not really going to change what we do treatment delaney The echocardiogram was unremarkable as I expected it to be an infectious diseases as expected decided that doxycycline is not indicated here as it is very no evidence that this was ever Lyme disease We will await the results of the CSF and so far there are 8 white cells and normal protein and normal glucose and frankly the presence of white cells does not surprise me in light of the active nature of her plaque in the right hemisphere We will be back tomorrow reevaluate her and probably clear her for discharge unless there are other unexpected changes overnight or unexpected findings on the CSF analysis Eric Love MD Doron Drake is a 23 year old female with a PMH migraines, sclerosis, gestational DM who started having left arm numbness on Thursday. She states the numbness is also on the left side of her face. Her leg has some numbness but is is spotty distribution down to her foot. Her mother is in the room and states this happened to her 4 years ago but only lasted 2 days. She also has a history of a tick bite on her right ear in the past month. Mom states there are no neurologic issues in the family. Her brother had a tethered cord at and scoliosis, mom has DM. She has a 2 year old daughter that is healthy. she is a daily smoker but has Chantix trying to quit. The only other medication she is on estrogen based control. She is lying flat just returned from the LP. discussed staying flat 2 hours. If she has headache at home she should call for a blood patch. denies CP, SOB, abdominal pain, vision changes, bowel or bladder issues, N, V. Physical Exam Physical Exam: Gen: alert NAD lungs CTA CV RRR left hand dysmetria can lift her arm against gravity and maintain broom bundler 4+/5, difficulty opening hand bilaterally LE hip flex plantar flex ext 5/5 brisk reflexes Results & Data ([facility]) Vital Signs (Past 12 Hours) Vital Signs Temp Pulse Pulse Resp BP Pulse Ox 09/26/19 14:35 62 16 121/78 96 09/26/19 14:20 36.7 C 63 18 136/66 96 09/26/19 14:05 36.7 C 61 16 118/76 97 09/26/19 11:09 37.1 C 68 18 114/70 98 09/26/19 10:09 54 L 09/26/19 07:00 36.8 C 85 16 118/75 95 09/26/19 04:55 36.3 C L 59 L 18 110/64 95 09/26/19 03:20 36.8 C 61 18 118/73 97 Laboratory Results Abnormal lab results 09/26/19 09/26/19 09/26/19 Range/Units 06:03 06:03 13:35 WBC 13.64 H (4.8-10.8) K/uL Chloride 109 H (98-107) mmol/L Glucose 137 H (70-99) mg/dl CSF WBC (0-5) /uL CSF Glucose (40-70) mg/dl CSF Lactate 2.7 H (0.6-2.2) mmol/L 09/26/19 09/26/19 Range/Units 13:35 13:35 WBC (4.8-10.8) K/uL Chloride (98-107) mmol/L Glucose (70-99) mg/dl CSF WBC 8 H (0-5) /uL CSF Glucose 90 H (40-70) mg/dl CSF Lactate (0.6-2.2) mmol/L Diagnostic Findings lumbar spine LP
[2019-09-26] MEDS: methylPREDNISolone 1,000 MG in DEXTROSE 5% 250 ML IV SCH (16:23)
[2019-09-27] MEDS: SODIUM CHLORIDE 0.9% 1000ML 1,000 ML IV SCH (06:29)
[2019-09-27 07:41] LABS: Hematocrit (blood only) 39.2 % (37-47); Hemoglobin 12.9 g/dL (12.0-16.0); Mean Corpuscular Hemoglobin 29.7 pg (25-34); Mean Corpuscular Hgb Conc 32.9 g/dL (32-36); Mean Corpuscular Volume 90.1 fL (80-100); Mean Platelet Volume 9.8 fL (7.4-10.4); Platelet Count 259 K/uL (130-400); RDW Coefficient of Variation 12.8 % (11.5-14.5); RDW Standard Deviation 42.5 fL (36.4-46.3); Red Blood Count 4.35 M/uL (4.2-5.4); White Blood Count 9.69 K/uL (4.8-10.8)
[2019-09-27 08:14] LABS: BUN Creatinine Ratio 14.4 (10-20); Calcium 8.6 mg/dl (8.5-10.1); Creatinine Clr Calc Pharmacy 89.5 ml/min; Est GFR (Non-African American) 87.2; Potassium 3.8 mmol/L (3.5-5.1)
--- NOTE | 2019-09-27 09:07 | Discharge Summary ---
Date of Service September 27, 2019 Admission HPI Per Admitting Provider 23-year-old female with no significant past medical history, presents with ongoing weakness and numbness in the left extremities since last Thursday. She says it is more on the left upper extremity than the lower extremity, some numbness and weakness and also some numbness on the left side of the face and she has some trouble walking. Three weeks ago, she had hives all over the body and that got resolved with Benadryl. About a month ago, she had a migraine headache and question of some rash. She went to [facility] yesterday and they did a CAT scan, which was unremarkable and she came here. An MRI scan was done, showing possible demyelinating disease. On Lyme screen, IgM was equivocal. Speech clear. No dysphagia.Currently, denies any headache, no blurred vision, no double vision, no earache, no sore throat, no cough, no fever, no chills, no chest pain, no shortness of breath, no nausea, no abdominal pain. Normal bowel and bladder movements. No melena or hematochezia. No hematuria or burning micturition, no swelling in the legs. She is a single mom and she lives alone. Parents are in the Room currently. The patient smokes half pack a day and she is trying to quit. She just started Chantix 6 days ago and she is on control pills. Admission Exam Per Admitting Provider Constitutional: appearance nourished, healthy and normal Ears, Nose, Mouth and Throat: mucous membranes moist, no injection and skin normal, eyes normal Cardiovascular: normal S-1 and S-2 and regular rate and rhythm Respiratory: clear to auscultation (CTA) and no rales, rhonchi or wheeze Musculoskeletal: no peripheral edema and good distal pulses Skin: no stigmata of neurocutaneous disease noted and normal and intact Eyes: extraocular muscles intact (EOMI) and pupils equal, round and reactive to light (PERRL) NEUROLOGIC EXAMINATION: Mental status: Alert and interactive Oriented to full date and location Oriented to person Speech fluent with no evidence of aphasia Cranial Nerves smile eye brow raise symmetric Reflexes: Deep tendon reflexes were symmetrical and brisk throughout. Sensory: decreased sensation left arm face, cool light touch Coordination: finger to nose on left dysmetric , negative Romberg Gait/Stance: Posture normal. Gait normal: with steady with steps, base, and tandem gait. Motor: Negative for pronator drift of out stretched arms with eyes closed. Strength: right hand acid conditioner biceps triceps 5/5, left hand acid conditioner biceps triceps 4+/5, hip flex bilaterally 5/5 Principal Diagnosis Demyelinating Disease Weakness Discharge Exam Gen-AAO x 3, NAD, Afebrile Head-NCAT, EOMI, PERRLA, Anicteric Sclera, No Posterior Pharyngeal Erythema Neck-Supple, No JVD, No Thyromegaly, No Masses, No LAD, No Bruits Lungs-Clear to Auscultation Bilaterally, No Rales, No Rhonchi, No Wheezing, No Crepitus Chest-No S4, +S1, +S2, No S3, No Murmurs, No Rubs, No Gallops, No Ectopy Abdomen-Soft, Bowel Sounds Present, Non Tender, Non Distended, No Hepatomegaly, No Splenomegaly, No Palpable Masses, No Rebound, No Rigidity, No Guarding Musculoskeletal-Full Range of Motion Bilaterally, No CVAT Extremities-No Cyanosis, No Clubbing, No Edema Nuero-Cranial Nerves II-XII grossly intact, Motor Weak on L, Decreased Strength L Psych-Normal Mood Discharge Data Allergies Allergy/AdvReac Type Severity Reaction Status Date / Time No Known Allergies Allergy Unverified 09/23/19 13:55 Consultations 09/23/19 14:24 ED Decision to Admit Stat 09/23/19 15:49 Consult Case Management - Discharge Planning Routine Consult Neurology Routine 09/24/19 08:00 Consult Infectious Diseases Routine 09/26/19 05:52 Consult Infectious Diseases Routine Ordered Studies 09/23/19 12:14 MR brain MS wo/w con Stat 09/24/19 00:00 MR cervical spine wo/w con Routine MR lumbar spine wo/w con Routine MR thoracic spine wo/w con Routine 09/26/19 13:15 FL lumbar puncture diagnostic Routine Current Diagnoses Multiple sclerosis (09/23/19) Demyelinating disease of central nervous system, unspecified (09/23/19) Gestational diabetes mellitus in , diet controlled (09/23/19) Other symptoms and signs involving the nervous system (09/23/19) Abnormal findings on diagnostic imaging of skull and head, not elsewhere classified (09/23/19) Allergies No Known Allergies Allergy (Unverified 09/23/19 13:55) Height/Weight/Isolation Height 5 ft 2 in Weight 75.1 kg Isolation Type Removed Precautions Chemistry 09/26/19 09/27/19 06:03 07:10 Sodium 139 138 Potassium 4.0 3.8 Chloride 109 H 108 H Carbon Dioxide 25 21 Anion Gap 5.0 10.0 BUN 12 13 Creatinine 0.87 0.92 Glucose 137 H 162 H Microbiology 09/26/19 13:35 Cerebral Spinal Fluid Gram Stain - Final 09/26/19 13:35 Cerebral Spinal Fluid CSF Culture - Pending Hospital Course (1) Multiple sclerosis: (2) Focal neurological deficit: (3) Demyelinating changes in brain: (4) Abnormal MRI of head: (5) Diet controlled gestational diabetes mellitus (GDM) in third trimester: ASSESSMENT AND PLAN: This is a 23-year-old female who presents with left-sided numbness and weakness and found to have a possible demyelinating disease. 1. Possible multiple sclerosis with demyelinating disease on the MRI scan with left-sided weakness and numbness. Neurology on case. Plan for multiple sclerosis workup with MRI scan of the total spine and lumbar puncture. On high dose steroids 1 gram daily for 4 days. Not responding. Monitor on medical/surgical telemetry. Lyme screen equivocal; we will empirically start on doxycycline until further results are back. Neurology on case. ID to see. Echo as initial reading question of subacute infarct. 2. Deep venous thrombosis prophylaxis, sequential compression devices. labs checked, LP done, Serologies pending, DC today on steroid taper and f/u with Dr Kate CM-No Headache, No Visual Changes, No Nausea, No Vomiting, No Fever, No Chills, No Neck Pain or Stiffness, No Chest Pain, No Palpitations, No SOB, No MOE, No Cough, No Sputum, No Wheezing, No Abdominal Pain, No Diarrhea, No Hematemesis, No Hemoptysis, No Unexpected Weight Loss, No Flank pain, No Melena, No Hematochezia, No Frequency, No Urgency, No Burning, No Hematuria, No Rashes, No Diaphoresis. Appetite is Normal, Not improving yet Physical Exam Gen-AAO x 3, NAD, Afebrile Head-NCAT, EOMI, PERRLA, Anicteric Sclera, No Posterior Pharyngeal Erythema Neck-Supple, No JVD, No Thyromegaly, No Masses, No LAD, No Bruits Lungs-Clear to Auscultation Bilaterally, No Rales, No Rhonchi, No Wheezing, No Crepitus Chest-No S4, +S1, +S2, No S3, No Murmurs, No Rubs, No Gallops, No Ectopy Abdomen-Soft, Bowel Sounds Present, Non Tender, Non Distended, No Hepatomegaly, No Splenomegaly, No Palpable Masses, No Rebound, No Rigidity, No Guarding Musculoskeletal-Full Range of Motion Bilaterally, No CVAT Extremities-No Cyanosis, No Clubbing, No Edema Nuero-Cranial Nerves II-XII grossly intact, Motor Weak on L, Decreased Strength L Psych-Normal Mood Total Time Total Time Spent Total Time Spent (In Minutes): 45 mins Total Time Includes: Examination of the Patient, Discharge Planning, Medication Reconciliation and Communication With Other Providers Discharge Plan Discharge Items Patient Disposition: Home - Self-Care Reason For Visit: NEURO SYMPTOMS Discharge Diagnosis: Demyelinating Polyneuropathy Weakness Condition on Discharge: Good Health Concerns: progressive weakness Activity: Resume your previous activity Lifting: None Bathing: No limitations Sexual Activity: When tolerated Exercise/Sports: None Driving/Machine Use: No limitations Weightbearing: Full weightbearing Non-emergency contact: Primary Care Provider and Neurologist Call non-emergency contact if: you have any medication questions Follow-up/Referrals: Eric Love MD [Physician] - (Call for first opening. Patient will call and make appointment.) PCP,NO [Primary Care Provider] - (Possible refer to [facility] and [facility] [place] for [place] care) Diet: Regular Addtl Attending Provider Instructions: none Pending Studies at Discharge: Yes Stand-Alone Forms: My [facility] [employer], Smoking Cessation Medications and DC Order Prescriptions: New prednisone 10 mg tablet 10 mg PO DAILY Qty: 48 RF: 0 Continued norethindrone ac-eth estradiol [Microgestin 1.5 (21)] 1.5-30 mg-mcg tablet 1 tab PO QAM RF: 0 Chantix Continuing Month Box 1 mg tablet 1 mg PO BID RF: 0 Discharge Orders: Discharge Order (Routine); Ordered 09/27/19 Ordered By: Lukasz Chapin Admission Data Admit Date/Time: 09/23/19 15:02 Attending Provider: Lukasz Chapin Admit Provider: Palepu,Michael P. Primary Care Provider: PCP,NO Other Providers: Michael Botello ; Eric Love ; Alexandra Moralez Other Interventions: Discharge Summary Assessment (RN) Last Done: 09/27/19 09:29
[2019-09-28 10:49] LABS: Alpha 1 Globulin 0.4 g/dL (0.2-0.3); Alpha 2 Globulin 0.8 g/dL (0.5-0.9); Angiotensin Converting Enzyme 33 U/L (9-67); Anti Nuclear Antibody Screen POSITIVE (NEGATIVE); Beta-1-Globulin 0.5 g/dL (0.4-0.6); Beta-2-Globulin 0.4 g/dL (0.2-0.5); Gamma Globulin 1.1 g/dL (0.8-1.7); Monoclonal Protein Band 1 DNR g/dL (NONE DETECTED); Monoclonal Protein Band 2 DNR g/dL (NONE DETECTED); Monoclonal Protein Band 3 DNR g/dL (NONE DETECTED); Rheumatoid Factor <14 IU/mL (<14); Total Protein 7.2 g/dL (6.1-8.1)
[2019-09-29 13:44] LABS: ANA Titer 1:40 titer
== END 2019-09-27 10:08 | disposition home or self-care (01) | DRG 60 ==
LOC: ED 11:07 → 2W 15:02 → SUATTDRO 15:02 → 2W 15:25